=== PATIENT | female | born 1945 | race Caucasian/White ===

== ENCOUNTER 2024-11-24 10:29 | Emergency (ER) | payer MEDICARE, SELFPAY ==
--- NOTE | ~2024-11-24 | CT_ITS ---
EXAMINATION: CT abdomen pelvis w con DATE: 11/24/2024 13:19 INDICATION: Abdomen pain and constipation TECHNIQUE: Computed tomography (CT) of the abdomen and pelvis was performed without intravenous contr ast. The dose-length product was 767.26 mGy-cm. Automated exposure control and iterative reconstructi on technique were employed. COMPARISON: CT dated 11/17/2007. FINDINGS: There is dependent atelectasis of the lung bases. Heart size is normal. No significant pleu ral or pericardial effusion. Fatty infiltration of the liver. Small subcentimeter hypodensity left he patic lobe, most likely benign. The spleen, pancreas, adrenal glands and left kidney are unremarkable . There is a 3 mm nonobstructing right renal stone. Status post cholecystectomy. Nonobstructive bowel gas pattern colonic diverticulosis without evidence for diverticulitis. No free air or free fluid. N o significant vascular abnormality. No lymphadenopathy. Small fat-containing umbilical hernia. Mild l ower thoracic and lumbar spondylosis. IMPRESSION: 1. No acute abdominal abnormality. 2: Nonobstructing 3 mm right renal stone. Reviewed, dictated and finalized at location B.
[2024-11-24 10:41] VITALS: BP 189/88; PULSE 73; RESP 18; TEMP 37.1; O2SAT 96
--- NOTE | 2024-11-24 11:37 | ED.ABDPAIN ---
HPI - Abdominal Pain General Chief Complaint: Abdominal Pain Stated Complaint: CONSTIPATION Time Seen by Provider: 11/24/24 10:41 Source: patient Mode of arrival: ambulatory Limitations: no limitations History of Present Illness HPI narrative: Patient is a 79-year-old female who presents the ED with report of constipation. Patient reports her last bowel movement was around 3 days ago. She attempted to have a bowel movement today, but states she sat on the toilet for approximately 2 hours and was unable to pass any stool. She attempted taking Dulcolax and a fleets enema today w/o improvement. Has now been passing continuous liquid stool. She has had a very small amount of bright red blood with wiping. Does have history of hemorrhoids which she states are flared currently. Denies significant abdominal pain. Denies urinary complaints, N/V. Related Data Allergies Allergy/AdvReac Type Severity Reaction Status Date / Time No Known Allergies Allergy Mild Verified 10/31/07 23:46 Review of Systems Review of Systems: All systems reviewed & are unremarkable except as noted in HPI. All systems reviewed & are unremarkable except as noted in HPI and below Exam Narrative: GENERAL: Elderly but well appearing, obese with BMI of 32.6, non-toxic, in no acute distress. HEAD: Normocephalic, atraumatic. RESPIRATORY: Airway patent, respirations nonlabored. Clear to auscultation bilaterally, no rales, rhonchi, wheezing. CARDIOVASCULAR: Regular rate and rhythm without murmurs, rubs, or gallops. ABDOMINAL: Soft, mild diffuse tenderness throughout lower abdomen, nondistended. Normoactive BS. RECTAL: Several small external hemorrhoids noted, no signs of thrombosis. No bleeding. Small amount of brown stool oozing from rectum. MUSCULOSKELETAL: Moves all extremities. No gross deformities. SKIN: Warm, dry, normal color. NEURO: A&O X3. Speech clear. PSYCHIATRIC: Appropriate mood and affect. Normal interaction. Course Vital Signs Vital signs: Vital Signs Temperature 98.7 F 11/24/24 10:41 Pulse Rate 73 11/24/24 10:41 Respiratory Rate 18 11/24/24 10:41 Blood Pressure 189/88 H 11/24/24 10:41 Pulse Oximetry 96 11/24/24 10:41 Temperature 98.7 F 11/24/24 10:41 Pulse Rate 70 11/24/24 14:49 Respiratory Rate 18 11/24/24 14:49 Blood Pressure 146/71 H 11/24/24 14:49 Pulse Oximetry 97 11/24/24 14:49 MDM - Abdominal Pain MDM Narrative Medical decision making narrative: Patient presented to ED with several day history of constipation. Mild leaking liquid stool. Vital signs stable. Patient in no acute distress. Laboratory studies show leukocytosis 17.9. Neutrophil predominance. No bandemia. CMP is unremarkable. Stable electrolytes, stable kidney function. Normal LFTs and lipase. UA without signs of infection, showing very trace amount of blood. CT scan of abdomen/pelvis was obtained and without acute abnormalities. Does show right renal stone. No fecal impaction or evidence of obstruction. No infection. Personal review of images does show decent amount of stool burden. Discussed this with patient. She would like to proceed with enema. Will also give MiraLax. Discussed MiraLax/Dulcolax regimen at home over the next week for continued constipation management. Encourage high-fiber diet, plenty of fluids. Patient feeling better after enema. Feel she is safe for discharge home. Given strict return precautions. Did advised patient to follow-up with PCP for repeat laboratory evaluation elevated white blood cell count today. Patient in agreement with plan. Feels comfortable going home. Discharged in stable condition. Medical Records Attestation: I reviewed the patient's medical records. Lab Data Attestation: I reviewed the patient's lab results. 11/24/24 12:10 11/24/24 12:10 Labs: Lab Results 11/24/24 11/24/24 Range/Units 12:10 13:34 WBC 17.9 H (4.5-10.0) K/mm3 RBC 4.41 (4.2-5.4) M/mm3 Hgb 14.1 (12.0-15.0) g/dL Hct 41.0 (37.0-47.0) % MCV 93.0 (80-100) fl MCH 32.0 (26-34) pg MCHC 34.4 (32-36) g/dl RDW 12.8 (11.5-14.5) % Plt Count 217 (150-375) k/mm3 MPV 9.0 (7.4-10.4) fl Immature Gran % (Auto) 0.9 H (0-0.5) % Neut % (Auto) 86.0 H (45.5-73.1) % Lymph % (Auto) 5.4 L (18.3-44.2) % [place] % (Auto) 6.6 (2.6-8.5) % Eos % (Auto) 0.8 (0-4.4) % Baso % (Auto) 0.3 (0.2-1.2) % Lymph # (Auto) 0.96 (0.9-3.2) K/mm3 [place] # (Auto) 1.2 H (0.1-0.6) K/mm3 Eos # (Auto) 0.1 (0-0.3) K/mm3 Baso # (Auto) 0.1 (0.0-0.1) K/mm3 Abs Immat Gran (auto) 0.16 H (0.00-0.031) K/mm3 Absolute Neuts (auto) 15.4 H (1.3-6.7) K/mm3 Absolute Nucleated RBC 0.000 (0.0-0.012) K/mm3 Nucleated RBC % 0.0 (0.0-0.2) % Sodium 138 (137-145) mmol/L Potassium 4.1 (3.4-5.0) mmol/L Chloride 104 (98-107) mmol/L Carbon Dioxide 29 (22-30) mmol/L Anion Gap 5 (4-12) mmol/L BUN 14 (7-17) mg/dL Creatinine 0.73 (0.7-1.0) mg/dL Estim Creat Clear Calc 55 ml/min Estimated GFR > 60 (59 - ) Glucose 114 H (65-110) mg/dL Calcium 9.6 (8.4-10.2) mg/dL Total Bilirubin 0.5 (0.2-1.3) mg/dL AST 32 (14-36) U/L ALT 22 (6-35) U/L Alkaline Phosphatase 58 (38-126) U/L Total Protein 6.6 (6.3-8.2) g/dL Albumin 3.8 (3.5-5.1) g/dL Lipase 56 (23-300) U/L Urine Color Yellow (Yellow) Urine Appearance Clear (Clear) Urine pH 8.0 (5.0-9.0) Ur Specific [place] 1.023 (1.001-1.035) Urine Protein Negative (Negative) mg/dL Urine Glucose (UA) Negative (Negative) mg/dL Urine Ketones Negative (Negative) mg/dL Ur Blood (Man) Negative (Negative) Urine Nitrate Negative (Negative) Urine Bilirubin Negative (Negative) Urine Urobilinogen 1.0 (<2.0) mg/dL Add Ur Microanalysis Reviewed Leukocyte Esterase Rfl 1+ H (Negative) TETO/UL Urine RBC 6-10 H (0-2) /hpf Urine WBC 0-5 (0-3) /hpf Ur Squamous Epith Cells None seen (Few) /hpf Urine Bacteria None seen /hpf Urine Casts 0-2 Imaging Data Attestation: I personally reviewed and interpreted this imaging study as follows: Radiologist's impression: ITS Impressions Abdomen/Pelvis CT 11/24/24 14:33 IMPRESSION: 1. No acute abdominal abnormality. 2: Nonobstructing 3 mm right renal stone. Discharge Plan Discharge Clinical Impression: Constipation Qualifiers: Constipation type: unspecified constipation type Qualified Code(s): K59.00 - Constipation, unspecified Leukocytosis Qualifiers: Leukocytosis type: unspecified Qualified Code(s): D72.829 - Elevated white blood cell count, unspecified Patient Disposition: Home Condition: Stable Instructions: Antibiotic Form, Constipation (ED), High Fiber Diet (ED) Additional Instructions: Recommend MiraLax and Dulcolax twice daily as needed for the next 1 week. If you developed diarrhea, you may decrease to once per day or every other day. Recommend high-fiber diet, increasing fluid intake. Avoid straining as this can aggravate your hemorrhoids. Follow-up with your primary care doctor for further evaluation. Additionally, your white blood cell count was noted to be elevated today. There are no signs of infection on your imaging. Follow-up with your primary care doctor for repeat laboratory evaluation. Return to the ED if you experience worsening or severe symptoms, unable to keep down food or drink, severe rectal bleeding, fevers, or any other symptoms of concern. Patient Language: Bahamian Follow-up/Referrals: Kathie,MD Tamie [Primary Care Provider] - Time of Disposition: 15:37
--- NOTE | 2024-11-24 11:57 | PC.NURSE ---
two attempts made for iv access and lab draw, a second nurse will attempt to obtain iv access
--- OUTSIDE RECORDS SUMMARY | 2024-11-24 12:14 | XMS_ITS | Referral Summary ---
Author Organization [address] Address [address] [place] [phone] Care Team Providers Care Building Materials Sales Attendant Name Role Phone Tamie Vázquez MD Primary Care [facility] Encounters Date Type Department Care Team Description 11/16/2024 Telephone [facility] Medicine [address] [place] [phone] Skylar Albrecht MA Chart Review ([employer] med adh) 10/28/2024 [facility]phone [facility] [address] [place] [phone] Amberly Tavarez MA Chart Review (Med adherence) 10/21/2024 10:00 AM CDT Office Visit [facility] Medical [facility] Family Medicine [address] [place] [phone] Tamie Vázquez MD Encounter for Medicare annual wellness exam (Primary Dx); Abnormal CT of the chest; Coronary artery calcification; Hypertension, essential; Type 2 diabetes mellitus with stage 2 chronic kidney disease, without long-term current use of insulin (HCC); CKD (chronic kidney disease) stage 2, GFR 60-89 ml/min; Mixed hyperlipidemia; Acquired hypothyroidism; Mild persistent asthma without complication; LAURA (obstructive sleep apnea); Mild recurrent major depression; Atrophic vaginitis; Hepatic steatosis; Class 2 severe obesity due to excess calories with serious comorbidity and body mass index (BMI) of 35.0 to 35.9 in adult (HCC); Pulmonary nodule; Postmenopausal status; Screening mammogram for breast cancer 10/14/2024 Results Follow-Up [facility] [address] [phone] Tamie Vázquez MD Lipid panel, Comprehensive metabolic panel, Hemoglobin A1c, Additional followed-up results: 2 10/13/2024 Orders Only [facility] [address] [phone] Tamie Vázquez MD 09/16/2024 ACO Med[facility] [address] [place] [phone] 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, education finance processor from Last 3 Months Allergies No known active allergies Medications fluticasone propionate (FLONASE) 50 mcg/actuation nasal spray SHAKE LIQUID AND USE 2 SPRAYS IN EACH NOSTRIL DAILY 16 g 8 03/08/20 22 Active pen needle, diabetic (NovoFine Plus) 32 gauge x 1/6 needle Use weekly with her injections 100 each 11/30/19 23 Active cetirizine 10 mg capsule Take 10 mg by mouth daily 30 capsule 3 01/07/20 23 Active lisinopriL (PRINIVIL,ZESTRIL ) 2.5 mg tabletIndications :Hypertension, essential TAKE 1 TABLET(2.5 MG) BY MOUTH DAILY 90 tablet 03/04/20 23 Active clobetasoL (TEMOVATE) 0.05 % ointment Apply to vulva 1-2x weekly. 45 g 1 06/23/19 24 Active escitalopram (LEXAPRO) 20 mg tabletIndications :Mild depression TAKE 1 TABLET(20 MG) BY MOUTH DAILY 90 tablet 3 10/20/19 24 Active rosuvastatin (CRESTOR) 5 mg tablet Take 1 tablet (5 mg total) by mouth daily 30 tablet 11 12/01/19 24 2024 Active estradioL (Estrace) 0.01 % (0.1 mg/gram) vaginal cream Apply 1/2 to 1 FTU to external labia and vulva 2-3x weekly. 42.5 g 2 12/25/19 24 Active hydroCHLOROthiazi de 12.5 mg tabletIndications :Hypertension, essential TAKE 1 TABLET(12.5 MG) BY MOUTH DAILY 90 tablet 3 02/27/20 24 Active levothyroxine (SYNTHROID) 50 mcg tabletIndications :Acquired hypothyroidism TAKE 1 TABLET(50 MCG) BY MOUTH DAILY 90 tablet 2 06/28/19 25 Active fluticasone propion-salmetero L (ADVAIR HFA) 230-21 mcg/actuation inhaler Inhale 2 puffs 2 (two) times a day Rinse mouth with water after use. Do not swallow. 3 g 3 08/20/19 25 Active triamcinolone (KENALOG) 0.1 % cream APPLY TOPICALLY TO THE AFFECTED AREA TWICE DAILY 30 g 1 09/24/19 25 Active aspirin 81 mg enteric coated tablet Take 1 tablet (81 mg total) by mouth daily 10/22/19 25 2025 Active albuterol HFA (PROVENTIL HFA,VENTOLIN HFA,PROAIR HFA) 90 mcg/actuation inhaler INHALE 2 PUFFS BY MOUTH EVERY 6 HOURS NEEDED FOR WHEEZING OR SHORTNESS OF BREATH 1 each 3 11/10/19 25 Active potassium chloride ER 10 mEq CR tabletIndications :Hypokalemia TAKE 1 TABLET(10 MEQ) BY MOUTH DAILY 100 tablet 1 11/06/19 25 Active Ozempic 0.25 mg or 0.5 mg (2 mg/3 mL) pen injector injectionIndicati ons:Type 2 diabetes mellitus with hyperlipidemia (HCC) INJECT 0.5MG UNDER THE SKIN WEEKLY 3 mL 11/16/19 25 Active albuterol HFA (PROVENTIL HFA,VENTOLIN HFA,PROAIR HFA) 90 mcg/actuation inhaler Inhale 2 puffs every 6 (six) hours as needed for wheezing or shortness of breath 1 each 3 04/28/20 23 2024 Discontinued potassium chloride ER 10 mEq CR tabletIndications :Hypokalemia TAKE 1 TABLET(10 MEQ) BY MOUTH DAILY 30 tablet 09/28/19 25 2024 Discontinued Ozempic 0.25 mg or 0.5 mg (2 mg/3 mL) pen injector injectionIndicati ons:Type 2 diabetes mellitus with hyperlipidemia (HCC) INJECT 0.5MG UNDER THE SKIN WEEKLY 3 mL 10/14/19 25 2024 Discontinued Active Problems Problem Noted Date Diagnosed Date Low bone mass 10/14/2023 Assessment & Plan (10/14/2023 1:26 PM CDT): Chronic, stable Continue bone health support CKD (chronic kidney disease) stage 2, GFR 60-89 ml/min 10/14/2023 Mild persistent asthma 02/13/2023 Assessment & Plan (10/14/2023 12:43 PM CDT): Chronic, stable Managed by Pulmonary Continue albuterol, Advair Stress incontinence 07/15/2022 Assessment & Plan (10/14/2023 12:43 PM CDT): Chronic, stable Currently not on medication Continue to monitor Assessment & Plan (07/25/2022 10:49 AM LUMBER KILN OPERATOR): Chronic, improved Continue to monitor Assessment & Plan (07/15/2022 11:35 AM LUMBER KILN OPERATOR): -Main issue of urinary leakage with coughing, laughing. Denies other incontinence outside of this. Denies difficulty voiding. -Explained to patient that oral medication is not effective in helping stress incontinence. Discussed option of Kegel exercises on her own, pelvic floor therapy, or referral to urogyn surgeon who can assess for possible bladder sling. Patient elects to trial Kegel exercises on her own first. PLAN: -Start Kegel exercises on a daily basis. She was given handout on these exercises. We discussed importance of continuing these exercises once started. -Will f/u in 6 months. If she is doing well with exercises, she will cancel appointment. If not, will revisit pelvic floor therapy vs. Bladder sling. Pulmonary nodule 05/01/2021 Assessment & Plan (10/14/2023 12:43 PM CDT): Chronic, stable Last CT reviewed Consider follow-up testing in one year Assessment & Plan (07/25/2022 10:47 AM LUMBER KILN OPERATOR): Chronic, stable Continue to follow with pulmonary Update me with any changes Assessment & Plan (08/23/2021 11:58 AM LUMBER KILN OPERATOR): Update me with any changes Continue to follow with Pulmonary Assessment & Plan (05/15/2021 11:16 AM LUMBER KILN OPERATOR): Continue to follow with pulmonary Abnormal CT of the chest 09/20/2020 Overview (09/20/2020): will check PET scan further guidance once we have the results call for questions or concerns Assessment & Plan (10/14/2023 12:38 PM CDT): Chronic, stable Managed by Pulmonary Last CT completed in July 2023 Consider follow-up testing in one year Assessment & Plan (07/25/2022 10:36 AM LUMBER KILN OPERATOR): Chronic- stable Continue to follow with pulmonary Update me with any changes Assessment & Plan (05/15/2021 11:09 AM LUMBER KILN OPERATOR): CT reviewed Continue to follow with pulmonary Assessment & Plan (10/21/2020 7:38 PM CDT): Repeat CT scan of the chest in 6 months. Chronic cough 08/22/2020 Assessment & Plan (10/14/2023 1:24 PM CDT): Chronic, stable/improved Continue albuterol, Advair Update me with any changes or concerns Assessment & Plan (10/21/2020 7:37 PM CDT): PFTs do not show evidence of obstruction. She did not see improvement with bronchodilators. I will start her on Flonase and Zyrtec and follow her symptoms. If no improvement consider getting methacholine challenge test. Shortness of breath 08/22/2020 Assessment & Plan (10/14/2023 1:31 PM CDT): Chronic, stable Consider referral to Cardiology for further guidance-but she has declined for now. We did shared decision making- but encouraged to consider further evaluation Assessment & Plan (07/25/2022 10:48 AM LUMBER KILN OPERATOR): Chronic, stable She has follow up with pulmonary to review CT scan and symptoms We discussed an EKG, further evaluation- declined Any emergent symptoms, to the er Call for questions Assessment & Plan (05/15/2021 11:17 AM LUMBER KILN OPERATOR): Work up completed Continue to monitor Assessment & Plan (10/21/2020 7:39 PM CDT): Patient states her shortness of breath is improved. Will continue monitor her symptoms. Assessment & Plan (08/22/2020 10:43 AM LUMBER KILN OPERATOR): Will check PFT's Will start a new inhaler called symbicort-rinse her mouth out after using Continue albuterol as needed Chest xray ordered Further guidance once we have the results Hepatic steatosis 05/10/2020 Assessment & Plan (10/14/2023 12:42 PM CDT): Chronic, stable Continue to work on healthy lifestyle changes Assessment & Plan (07/25/2022 10:44 AM LUMBER KILN OPERATOR): Chronic Encouraged healthy lifestyle changes Assessment & Plan (05/15/2021 11:14 AM LUMBER KILN OPERATOR): lft's now normal Continue to monitor Assessment & Plan (05/10/2020 11:03 AM LUMBER KILN OPERATOR): With elevated liver function We reviewed a lower fat diet, working towards a lower BMI Recheck labs in 6 months Call for questions or concerns Arthritis of left knee 05/10/2020 Assessment & Plan (10/14/2023 12:39 PM CDT): Chronic, stable Continue supportive care Assessment & Plan (07/25/2022 10:37 AM LUMBER KILN OPERATOR): Chronic, stable Continue supportive care Assessment & Plan (05/15/2021 11:11 AM LUMBER KILN OPERATOR): Improved Continue supportive care Assessment & Plan (05/10/2020 11:05 AM LUMBER KILN OPERATOR): Xray reviewed Will refer to one of my colleagues for an injection Consider physical therapy-referral placed Tylenol as needed for pain Rest, ice, elevate as needed Call for questions or concerns Encounter for Medicare annual wellness exam 11/2019 Overview (10/21/2024): Work on healthy diet and activity Encouraged to look into POA or living will Health Maintenance: Last mammogram: 12/06, 01/06-WNL Last DEXA:12/06-low bone mass Last colonoscopy: 01/05-repeat in three years Last Tdap: Encouraged to get at the pharmacy Last pneumonia: up to date Last Shingrix: 2019 Last Flu: up to date Last COVID: reviewed Assessment & Plan (10/21/2024 10:22 AM CDT): Work on healthy diet and activity Encouraged to look into POA or living will Health Maintenance: Last mammogram: 12/06, 01/06-WNL Last DEXA:12/06-low bone mass Last colonoscopy: 01/05-repeat in three years Last Tdap: Encouraged to get at the pharmacy Last pneumonia: up to date Last Shingrix: 2019 Last Flu: up to date Last COVID: reviewed Assessment & Plan (10/14/2023 1:22 PM CDT): Work on healthy diet and activity Encouraged to look into POA or living will Health Maintenance: Last mammogram: 12/06-WNL Last DEXA:12/06-low bone mass Last colonoscopy: 2015, 01/05-repeat in three years Last Tdap: Encouraged to get at the pharmacy Last pneumonia: up to date Last Shingrix: 2019 Last Flu: up to date Last COVID: up to date Assessment & Plan (07/25/2022 10:33 AM LUMBER KILN OPERATOR): Work on healthy diet and activity Encouraged to look into POA or living will Health Maintenance: Last mammogram: scheduled Last DEXA: 01/05/2020-scheduled Last colonoscopy: 2015, repeat 12/2020-referral placed Last Tdap: insurance Last pneumonia: today Last Shingrix: 2018 Last Flu: recently got it Last COVID: encouraged Assessment & Plan (05/15/2021 11:08 AM LUMBER KILN OPERATOR): Work on healthy diet and activity Encouraged to look into POA or living will Health Maintenance: Last mammogram: ordered Last DEXA: 01/05/2020 Last colonoscopy: 2015, repeat 12/2020 Last Tdap: insurance Last pneumonia/Prevnar: will get this year Last Shingrix: 2019 Last Flu: recently got it Last COVID: up to date Assessment & Plan (03/21/2020 3:07 PM CDT): Work on healthy low carb diet Healthy activity for 30 minutes daily Wear sun screen, seat belts No drinking and driving Health Maintenance: Last mammogram: ordered Last DEXA: 01/05/2020 Last colonoscopy: 2015, repeat 12/2020 Last Tdap: insurance Last pneumonia/Prevnar: will get this year Last Shingrix: 2019 Last Flu: recently got it Type 2 diabetes mellitus wit h stage 2 chronic kidney disease, without long-term current use of insulin 03/21/2020 Assessment & Plan (10/14/2023 1:30 PM CDT): Chronic, stable Labs ordered Continue low carb Continue healthy habits Assessment & Plan (11/13/2022 1:22 PM CDT): Previously IFG-condition worsened Will refer to diabetes education Will place referral to an optometry Will start ozempic .25 mg weekly No history of thyroid cancer or MEN, pancreatitis Follow up in 3 months Assessment & Plan (07/25/2022 10:46 AM LUMBER KILN OPERATOR): Chronic, worse Encouraged a lower carb diet Gentle activity- like walking Can help mood, bones strength, and sugar Assessment & Plan (05/15/2021 11:15 AM LUMBER KILN OPERATOR): Continue to work on a lower carb diet Assessment & Plan (03/21/2020 3:34 PM CDT): Work on low carb diet Mixed hyperlipidemia 04/21/2019 Assessment & Plan (10/14/2023 12:43 PM CDT): Chronic, stable Continue Lipitor Assessment & Plan (11/13/2022 1:22 PM CDT): Chronic, but now diabetic Will start low dose lipitor Recheck labs in 6 weeks Call for questions or concerns Assessment & Plan (07/25/2022 10:47 AM LUMBER KILN OPERATOR): Chronic, uncontrolled CVD score 21.6% We discussed medication, she is very reluctant Reviewed healthy changes Recheck in 3 months Assessment & Plan (05/15/2021 11:16 AM LUMBER KILN OPERATOR): Doing well on pravastatin Continue current regimen Assessment & Plan (08/22/2020 12:59 PM LUMBER KILN OPERATOR): Declined medication restart Reviewed ASCVD score Consider recheck in 6 months from her original Continue to work on healthy changes Assessment & Plan (05/10/2020 11:04 AM LUMBER KILN OPERATOR): Improved! Continue current regimen Assessment & Plan (03/21/2020 3:16 PM CDT): CVD score 14.1% Will start pravastatin 10 mg nightly Lab recheck in 6 weeks Call for questions or concerns Assessment & Plan (07/22/2019 8:43 AM LUMBER KILN OPERATOR): CVD score 13.3% We reviewed cardiac risks, and what her 10 year risk is in clear language Continue work on healthy changes Call for questions or concerns Assessment & Plan (04/21/2019 9:17 AM LUMBER KILN OPERATOR): Labs reviewed Will start with lifestyle changes Fish oil 2-4 g EPA/DHA daily Low fat diet Work towards weight loss Increase aerobic exercise Recheck in 3-6 months Atrophic vaginitis 04/21/2019 Assessment & Plan (10/14/2023 12:39 PM CDT): Chronic, stable Managed by Gynecology Continue Estrace as prescribed Assessment & Plan (07/25/2022 10:40 AM LUMBER KILN OPERATOR): Chronic We discussed vaginal estrogen- she declined Will refer to MANAGER COSMETIC to discuss treatment options Assessment & Plan (05/15/2021 11:12 AM LUMBER KILN OPERATOR): We discussed doing a trial of a vaginal estrogen She has been using kenalog Assessment & Plan (04/21/2019 9:28 AM LUMBER KILN OPERATOR): On kenalog for years with improvement Will continue for now, but consider follow up for pelvic Hypertension, essential 03/18/2019 Assessment & Plan (10/14/2023 12:43 PM CDT): Chronic, stable Continue her current regimen Assessment & Plan (11/13/2022 1:23 PM CDT): Chronic, but above goal Will start lisinopril 2.5 mg daily Continue HCTZ Continue to work on healthy changes BP recheck in 2 weeks Assessment & Plan (07/25/2022 10:45 AM LUMBER KILN OPERATOR): Chronic, stable Continue healthy changes for her blood pressure Assessment & Plan (05/15/2021 11:15 AM LUMBER KILN OPERATOR): Stable Continue current regimen Continue healthy changes Assessment & Plan (03/21/2020 3:15 PM CDT): Blood pressure well controlled Continue current regimen Call for questions or concerns Assessment & Plan (07/22/2019 8:41 AM LUMBER KILN OPERATOR): Blood pressure at goal Continue current regimen Continue working on healthy changes Recheck in 6 months Assessment & Plan (03/18/2019 9:03 AM CDT): Blood pressure at goal Continue current regimen continue to work on healthy changes Call for questions or concerns LAURA (obstructive sleep apnea) 03/18/2019 Overview (03/18/2019): On CPAP, follows with Dr. Maher Assessment & Plan (10/14/2023 12:43 PM CDT): Chronic, stable Continue CPAP Assessment & Plan (07/25/2022 10:47 AM LUMBER KILN OPERATOR): Chronic, stable Continue to follow with Dr Maher Assessment & Plan (05/15/2021 11:16 AM LUMBER KILN OPERATOR): Continue CPAP Continue to follow with Dr Maher Assessment & Plan (10/21/2020 7:36 PM CDT): Continue with CPAP at night. Assessment & Plan (03/21/2020 3:22 PM CDT): On CPAP, follows with Dr. Maher Assessment & Plan (03/18/2019 9:04 AM CDT): Continue current regimen Continue to follow with ENT Call for questions or concerns Acquired hypothyroidism 03/18/2019 Assessment & Plan (10/14/2023 12:39 PM CDT): Chronic, stable Continue her current dose of levothyroxine Assessment & Plan (07/25/2022 10:37 AM LUMBER KILN OPERATOR): Chronic, stable Continue current dose of levothyroxine Assessment & Plan (08/23/2021 11:57 AM LUMBER KILN OPERATOR): Continue her current dose of levothyroxine Continue to follow with her social services director Call for questions or concerns Assessment & Plan (05/15/2021 12:06 PM LUMBER KILN OPERATOR): TSH is running too low, but T4 is also low Will place referral to endo Recheck thyroid, prolactin, thyroid us Call for questions or concerns Assessment & Plan (09/20/2020 11:00 AM CDT): Take the lower dose of her thyroid medication Recheck labs in 4 weeks Call for questions or concerns Assessment & Plan (08/22/2020 10:44 AM LUMBER KILN OPERATOR): Lab order printed Assessment & Plan (05/10/2020 11:04 AM LUMBER KILN OPERATOR): Now hyperthyroid Will have her alternate 137 with 125 Recheck labs in 4 weeks Call for questions or concerns Assessment & Plan (03/21/2020 3:29 PM CDT): Will increase dose Recheck in 4 weeks Call for questions Assessment & Plan (03/18/2019 9:05 AM CDT): Labs ordered Continue current regimen Mild recurrent major depression 03/18/2019 Assessment & Plan (10/14/2023 12:43 PM CDT): Chronic, stable Continue Lexapro Assessment & Plan (07/25/2022 10:46 AM LUMBER KILN OPERATOR): Chronic, improved Continue healthy changes for her mood Update me if they worsen or change Assessment & Plan (05/15/2021 11:15 AM LUMBER KILN OPERATOR): Mood is doing great Continue lexapro Assessment & Plan (03/18/2019 9:06 AM CDT): Doing fair on current regimen, has episodes where she does better or worse depending on her family Continue current medication Continue healthy changes to boost mood- exercise, healthy diet, using support structures that are in place, and good sleep habits Consider seeing a therapist If mood worsens or changes, please contact the office Anything emergent, to the er Call for questions or concerns Class 2 severe obesity due t o excess calories with serious comorbidity and body mass index (BMI) of 35.0 to 35.9 in adult 03/18/2019 Assessment & Plan (10/21/2024 10:27 AM CDT): Chronic, slight progression BMI Follow-up includes: education provided. Assessment & Plan (04/22/2024 10:40 AM LUMBER KILN OPERATOR): Chronic, improved BMI Follow-up includes: nutrition counseling. Assessment & Plan (10/14/2023 1:24 PM CDT): Chronic, improved BMI Follow-up includes: nutrition counseling, low carb diet. Assessment & Plan (07/25/2022 10:41 AM LUMBER KILN OPERATOR): BMI Follow-up includes: nutrition counseling. Assessment & Plan (05/14/2022 1:30 PM LUMBER KILN OPERATOR): BMI Follow-up includes: nutrition counseling. Assessment & Plan (08/23/2021 11:58 AM LUMBER KILN OPERATOR): Slightly higher than her last check BMI Follow-up includes: Continue working on healthy changes. Assessment & Plan (05/15/2021 11:13 AM LUMBER KILN OPERATOR): BMI Follow-up includes: nutrition counseling. Assessment & Plan (09/20/2020 10:20 AM CDT): BMI Follow-up includes: nutrition counseling. Assessment & Plan (03/21/2020 3:33 PM CDT): BMI Follow-up includes: nutrition counseling. Assessment & Plan (07/22/2019 8:43 AM LUMBER KILN OPERATOR): BMI Follow-up includes: nutrition counseling. Assessment & Plan (04/21/2019 9:20 AM LUMBER KILN OPERATOR): BMI Follow-up includes: nutrition counseling. BMR calculated at:1437 To lose weight, daily calorie goal to lose a pound a week would be [id number] Start tracking using an michele like [employer]angati, loseit There are many different diet options- I recommend moderation, low carb Try aim for whole foods-fruits, veggies, lean meats/protein sources Exercise is probably only 5% of the equation, but has many other benefits Aim for 30 minutes most day of the week for cardiac health Consider support groups like Weight Watchers or TOPS Follow up in 1 month for blood pressure/weight recheck Call for questions or concerns Assessment & Plan (03/18/2019 9:12 AM CDT): BMI Follow-up includes: nutrition counseling. Resolved Problems Problem Noted Date Diagnosed Date Resolved Date Grief 08/23/2021 10/14/2023 Assessment & Plan (10/14/2023 1:25 PM CDT): Acute, improved Update me if anything changes or worsens Assessment & Plan (07/25/2022 10:44 AM LUMBER KILN OPERATOR): Chronic, improved Continue healthy changes for her mood Update me with any changes Assessment & Plan (08/23/2021 11:56 AM LUMBER KILN OPERATOR): With several losses We reviewed medication, but at this time she is interested in therapy I have given her a list of local therapist Update me in the next couple weeks to let me know how she is doing If her mood worsens or changes I do want her to reach out to me Call for questions Left wrist pain 08/22/2020 05/15/2021 Assessment & Plan (08/22/2020 10:45 AM LUMBER KILN OPERATOR): Xray ordered Rest, ice, and consider a brace Further guidance once we have the results Call for questions or concerns Elevated liver function tests 04/21/2019 10/21/2024 Assessment & Plan (10/14/2023 12:40 PM CDT): Chronic, stable Likely related to hepatic steatosis Continue healthy lifestyle changes Assessment & Plan (11/13/2022 1:30 PM CDT): Chronic, stable Hepatic steatosis Continue healthy changes Assessment & Plan (07/25/2022 10:43 AM LUMBER KILN OPERATOR): Chronic, recurrent Will recheck in 3 months Assessment & Plan (05/15/2021 11:13 AM LUMBER KILN OPERATOR): Continue to monitor Continue healthy changes Assessment & Plan (05/10/2020 11:03 AM LUMBER KILN OPERATOR): With hepatic steatosis Will have her work on healthy lifestyle changes Assessment & Plan (03/21/2020 3:14 PM CDT): Slight bump Will check RUQ us Recheck labs in 6 months Assessment & Plan (07/22/2019 8:43 AM LUMBER KILN OPERATOR): Recheck printed Assessment & Plan (04/21/2019 9:18 AM LUMBER KILN OPERATOR): Will recheck in 3 months Work on healthy changes Immunizations Immunization Administration Dates Next Due Influenza, Quad, Adjuvantate d, Intramuscular 03/24/2021 Influenza, Quadrivalent, Hig h Dose, Preservative Free, Intrr 03/03/2023,03/26/2022,02/16/2020 Influenza, Trivalent, High D ose, Split, Preservative Free, Intramuscular 03/23/2024,03/18/2019,03/08/2018,03/26,03/08/2015,04/07/2014 Influenza, Trivalent, IM (MDV) 03/18/2013 Pneumococcal Conjugate PCV 13 05/15/2021 Pneumococcal Polysaccharide PPV23 07/25/2022 RSV Vaccine, Pref, Recombina nt, Subunit, Adjuvanted, PF, IM (Arexvy) 05/25/2023 Tdap 07/29/2022 ZOSTER Recombinant 01/24/2019,11/20/2018 Social History Tobacco Use Types Packs/Day Years Used Date Smoking Tobacco: Never Smokeless Tobacco: Never Tobacco Cessation:Counseling Given: Not Answered Alcohol Use Standard Drinks/Week Comments Not Currently 0 (1 standard drink = 0.6 oz pur e alcohol) AUDIT-C Answer Date Recorded Q1: How often do you have a drink containing alcohol? Never 04/22/2024 Q2: How many drinks containi ng alcohol do you have on a typical day when you are drinking? Patient does not drink Q3: How often do you have si x or more drinks on one occasion? Never 04/22/2024 PHQ-2 Answer Date Recorded PHQ-2 Total Score (If total score is 3 or more points, staff should administer the PHQ-9) 0 10/20/2024 PHQ-9 Answer Date Recorded PHQ-9 Total Score 3 10/20/2024 Comments No Sex and Gender Information Value Date Recorded Sex Assigned at Not on file Legal Sex Female 3:50 AM LUMBER KILN OPERATOR Gender Identity Female 07/16/2021 12:51 PM LUMBER KILN OPERATOR Sexual Orientation Straight 04/19/2021 7: 04 AM CDT Last Filed Vital Signs Vital Sign Reading Time Taken Comments Blood Pressure 136/70 10/21/2024 10:01 AM CDT Pulse 73 10/21/2024 10:01 AM CDT Temperature 36.1 C (96.9 F) 10/21/2024 10:01 AM CDT Respiratory Rate 12 10/21/2024 10:01 AM CDT Oxygen Saturation 97% 10/21/2024 10:01 AM CDT Inhaled Oxygen Concentration - - Weight 83 kg (183 lb) 10/21/2024 10:01 AM CDT Height 152.4 cm (5') 10/21/2024 10:01 AM CDT Body Mass Index 35.74 10/21/2024 10:01 AM CDT Plan of Treatment Not on file Procedures Procedure Name Priority Date/Time Associated Diagnosis Comments ECG 12-LEAD Routine 10/21/2024 10:59 AM CDT Coronary artery calcification ALBUMIN CREATININE RATIO, URINE Routine 10/13/2024 8:32 AM CDT CBC WITH AUTO DIFFERENTIAL Routine 10/13/2024 8:32 AM CDT HEMOGLOBIN A1C Routine 10/13/2024 8:32 AM CDT COMPREHENSIVE METABOLIC PANEL Routine 10/13/2024 8:32 AM CDT LIPID PANEL Routine 10/13/2024 8:32 AM CDT DIABETES EYE EXAM Routine 12/31/2023 SCREENING MAMMOGRAM BILATERAL W EJ Schedule Routine, Read Routine (OP Routine) 12/11/2023 11:43 AM CDT Screening mammogram, encounter for HM COLONOSCOPY Routine 01/07/2023 DEXA AXIAL SKELETON BONE DENSITY 1 OR MORE SITES Schedule Routine, Read Routine (OP Routine) 11/20/2022 9:07 AM CDT Postmenopausal status HEPATITIS C ANTIBODY Routine 03/18/2019 10:11 AM CDT from Last 3 Months or Most Recently Relevant to Health Maintenance Results * ECG 12 lead (10/21/2024 10:59 AM CDT) Tamie Vázquez MD ECG ORDERABLES Fin al Result * CBC with auto differential (10/13/2024 8:32 AM CDT) WBC 9.4 3.8 - 10.8 Thousand/u L [facility] RBC, POC 4.64 3.80 - 5.10 Million/uL [facility] Hgb 14.9 11.7 - 15.5 g/dL [facility] Hct 45.0 35.0 - 45.0 % [facility] MCV 97.0 80.0 - 100.0 fL [facility] MCH 32.1 27.0 - 33.0 pg [facility] MCHC 33.1 32.0 - 36.0 g/dL [facility] Comment: For adults, a slight decrease in the calculated MCHC value (in the range of 30 to 32 g/dL) is most likely not clinically significant; however, it should be interpreted with caution in correlation with other red cell parameters and the patient's clinical condition. Rdw 13.3 11.0 - 15.0 % [facility] Platelets 326 140 - 400 Thousand/u L [facility] MPV 9.5 7.5 - 12.5 fL [facility] Neutrophils, abs 6,571 1,500 - 7,800 cells/uL [facility] Lymphocytes, abs 1,983 850 - 3,900 cells/uL [facility] Monocyte abs 639 200 - 950 cells/uL [facility] Eosinophils, abs 141 15 - 500 cells/uL [facility] Basophils, abs 66 0 - 200 cells/uL [facility] Neutrophils 69.9 % [facility] Lymphocyte pct 21.1 % [facility] Monocytes 6.8 % [facility] Eosinophils 1.5 % [facility] Basophils 0.7 % [facility] 10/13/2024 8:32 AM CDT 10/13/2024 8:35 AM CDT Narrative [facility] - 10/14/2024 8:07 AM CDT FASTING:YES FASTING: YES Tamie Vázquez MD LAB BLOOD ORDERABLE S Final Result Performing Organization Address City/[facility] Co de Phone Number [facility] [address] [place] [address] * (ABNORMAL) Albumin Creatinine Ratio, Urine (10/13/2024 8:32 AM CDT) Creatinine, ur 463(H) 20 - 275 mg/dL [facility] Comment: Verified by repeat analysis. Microalbumin, ur 3.7 See Note: mg/dL [facility] Comment: Reference Range: Reference Range Not established Verified by repeat analysis. Microalbumin/creat ratio 8 <30 mg/g creat [facility] Comment: The ADA defines abnormalities in albumin excretion as follows: Albuminuria Category Result (mg/g creatinine) Normal to Mildly increased <30 Moderately increased 30-299 Severely increased > OR = 300 The ADA recommends that at least two of three specimens collected within a 3-6 month period be abnormal before considering a patient to be within a diagnostic category. 10/13/2024 8:32 AM CDT 10/13/2024 8:35 AM CDT Narrative [facility] - 10/14/2024 8:07 AM CDT FASTING:YES FASTING: YES us Tamie Vázquez MD LAB URINE ORDERABLE S Final Result Performing Organization Address [facility] Co de Phone Number [facility] [address] [address] * (ABNORMAL) Hemoglobin A1c (10/13/2024 8:32 AM CDT) Hgb A1C 5.7(H) <5.7 % of total Hgb [facility] Comment: For someone without known diabetes, a hemoglobin A1c value between 5.7% and 6.4% is consistent with prediabetes and should be confirmed with a follow-up test. For someone with known diabetes, a value <7% indicates that their diabetes is well controlled. A1c targets should be individualized based on duration of diabetes, age, comorbid conditions, and other considerations. This assay result is consistent with an increased risk of diabetes. Currently, no consensus exists regarding use of hemoglobin A1c for diagnosis of diabetes for children. 10/13/2024 8:32 AM CDT 10/13/2024 8:35 AM CDT Narrative [facility] - 10/14/2024 8:07 AM CDT FASTING:YES FASTING: YES us Tamie Vázquez MD LAB BLOOD ORDERABLE S Final Result [facility] [address] [place] [address] * Lipid panel (10/13/2024 8:32 AM CDT) [facility] Cholesterol 149 <200 mg/dL [facility] HDL 64 > OR = 50 mg/dL [facility] Triglycerides 138 <150 mg/dL [employer] LDL 63 mg/dL (calc) [facility] Comment: Reference range: <100 Desirable range <100 mg/dL for primary prevention; <70 mg/dL for patients with CHD or diabetic patients with > or = 2 CHD risk factors. LDL-C is now calculated using the Malcolm-Cisco calculation, which is a validated novel method providing better accuracy than the Friedewald equation in the estimation of LDL-C. Malcolm ESCOBAR et al. SASHA. 2013;310(19): 2071-1426 (http://education.PoachIt.The Whistle/faq/FID961) Chol/HDL ratio 2.3 <5.0 (calc) [employer] Non-HDL, (LDL+VLDL) 85 <130 mg/dL (calc) [facility] Comment: For patients with diabetes plus 1 major ASCVD risk factor, treating to a non-HDL-C goal of <100 mg/dL (LDL-C of <70 mg/dL) is considered a therapeutic option. 10/13/2024 8:32 AM CDT 10/13/2024 8:35 AM CDT Narrative [facility] - 10/14/2024 8:07 AM CDT FASTING:YES FASTING: YES us Tamie Vázquez MD LAB BLOOD ORDERABLE S Final Result [facility] [address] [place] [address] * Comprehensive metabolic panel (10/13/2024 8:32 AM CDT) Pathologist [facility] Glucose 95 65 - 99 mg/dL [facility] [employer] Comment: Fasting reference interval BUN 10 7 - 25 mg/dL [facility] [employer] Creatinine 0.74 0.60 - 1.00 mg/dL [facility] [employer] eGFR 83 > OR = 60 mL/min/1.7 3m2 [facility] [employer] BUN/creat ratio SEE NOTE: 6 - 22 (calc) [facility] Comment: Not Reported: BUN and Creatinine are within reference range. Sodium 142 135 - 146 mmol/L [facility] [employer] Potassium, pl 3.9 3.5 - 5.3 mmol/L [facility] Chloride 103 98 - 110 mmol/L [facility] [employer] CO2 30 20 - 32 mmol/L [facility] Calcium 9.5 8.6 - 10.4 mg/dL [facility] Protein, sr 7.0 6.1 - 8.1 g/dL [facility] Albumin 4.4 3.6 - 5.1 g/dL [facility] GLOBULIN 2.6 1.9 - 3.7 g/dL (calc) [facility] Alb/glob ratio 1.7 1.0 - 2.5 (calc) [facility] Bilirubin, total 0.5 0.2 - 1.2 mg/dL [facility] [employer] Alk phos 58 37 - 153 U/L [facility] AST 17 10 - 35 U/L [facility] ALT (SGPT) 13 6 - 29 U/L [facility] 10/13/2024 8:32 AM CDT 10/13/2024 8:35 AM CDT Narrative [facility] - 10/14/2024 8:07 AM CDT FASTING:YES FASTING: YES Tamie Vázquez MD LAB BLOOD ORDERABLE S Final Result [facility] [address] [place] [address] * DIABETES EYE EXAM (12/31/2023) SCRIBED DIABETIC DILATED EYE EXAM Normal Historical Provider HEALTH MAINTENANCE Final Result * (ABNORMAL) Screening Mammogram Bilateral W Ej (12/11/2023 11:43 AM CDT) Anatomical Region Laterality Modality Breast Bilateral Mammography Impressions 12/11/2023 12:48 PM CDT BI-RADS ATLAS category (overall): 0 - Incomplete: Needs Additional Imaging Evaluation 1. Indeterminate right breast masses as above. Further evaluation with diagnostic right mammography and possible diagnostic right breast ultrasound is recommended. 2. No mammographic evidence of malignancy in the left breast. Routine screening mammography of the left breast is recommended in 1 year. The patient has been or will be contacted. Narrative 12/11/2023 12:48 PM CDT Screening Mammogram Bilateral W Ej: 12/11/23 The study was acquired using full field digital technology and interpreted from soft copy. 2D digital mammographic views, as well as 3D digital tomosynthesis were performed in the CC and MLO projections. CLINICAL: Screening mammogram, encounter for. No relevant medical history has been documented for this patient. No known family history of breast cancer. COMPARISONS: 11/28/2022 Screening Mammogram Bilateral W Ej 07/10/2020 Screening Mammogram Bilateral W Ej 11/05/2018 Breast Imaging Screening Outside Reference BREAST TISSUE: The breasts have scattered areas of fibroglandular density. FINDINGS: There are unchanged benign calcifications in both breasts. There is an unchanged benign mass in the posterolateral left breast. There are two adjacent small circumscribed masses in the posterior right breast on the MLO view only. These may represent intramammary lymph nodes but were not seen on prior mammograms. There is no new suspicious finding in the left breast on mammogram. us Self Screening Mammogram IMG MAMMO PROCEDURES Fi nal Result * HM COLONOSCOPY (01/07/2023) Historical Provider HEALTH MAINTENANCE Final Result * Dexa Axial Skeleton Bone Density 1 or 2 Site (11/20/2022 9:07 AM CDT) Anatomical Region Laterality Modality Body N/A Mammography 11/20/2022 5:29 PM CDT Narrative 11/20/2022 5:30 PM CDT EXAM DESCRIPTION: DEXA AXIAL SKELETON BONE DENSITY 1 OR MORE SITES REASON FOR STUDY: 77 y/o year old F with given history of screening. 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 Dissimilar scan types or analysis methods precludes assessment for calculating a significant change. LEFT HIP: Total BMD is 0.965 g/cm2 T-score is 0.2 This is a 3.4% increase in comparison to prior exam which is statistically significant. Femoral neck BMD is 0.691 g/cm2 T-score is -1.4 FRAX: 10 year risk for a major osteoporotic fracture is 15 %, 10 year risk for a hip fracture is 2.5 % IMPRESSION: Low bone mass REFERENCE: Bone mineral density: Normal (T-score above or = -1.0) Low bone mass (T-score between -1.0 and -2.5) replaces the previously used term osteopenia Osteoporosis (T-score = or below -2.5) Medical evaluation for secondary causes of low bone mineral density may be appropriate. FRAX is a World Health Organization validated fracture risk assessment tool that calculates a person's 10 year probability of a major osteoporosis related fracture and hip fracture. According to the National Osteoporosis Foundation guidelines, postmenopausal women and men age 50 or older with low bone mass and a 10 year probability of a major osteoporosis related fracture = or greater than 20% or a 10 year probability of a hip fracture = or greater than 3% should be considered for treatment. For further information, including treatment recommendations, please refer to the 2019 ISCD Official Positions (http://www.iscd.org) and the NOF's Clinician's Guide to Prevention and Treatment of Osteoporosis (http://www.nof.org/professionals/clinical-guidelines) THIS IS AN ELECTRONICALLY VERIFIED FINAL REPORT 11/20/2022 5:30 PM - Electronically signed by Lucero Gilbert M.D. TW: TW Report ID: [id number] Reading Location: [id number] Procedure Note Lucero Gilbert MD - 11/20/2022 EXAM DESCRIPTION: DEXA AXIAL SKELETON BONE DENSITY 1 OR MORE SITES REASON FOR STUDY: 77 y/o year old F with given history of screening. Chain Maker Machine/Model: Kyron A (S/N [id number]) CLINICAL INFORMATION: Current height: 60 inches Maximum height: 61.5 inches Weight: 200 pounds Risk factors: Prior fracture COMPARISON: 01/05/2020 FINDINGS: AP LUMBAR SPINE L1-L4: Total BMD is 0.886 g/cm2 T-score is -1.5 This is 2.3% increase in comparison to prior exam. Dissimilar scan typesor analysis methods precludes assessment for calculating a significantchange. LEFT HIP: Total BMD is 0.965 g/cm2 T-score is 0.2 This is a 3.4% increase in comparison to prior exam which is statistically significant. Femoral neck BMD is 0.691 g/cm2 T-score is -1.4 FRAX: 10 year risk for a major osteoporotic fracture is 15 %, 10 year risk for ahip fracture is 2.5 % IMPRESSION: Low bone mass REFERENCE: Bone mineral density: Normal (T-score above or = -1.0) Low bone mass (T-score between -1.0 and -2.5) replaces thepreviously used term osteopenia Osteoporosis (T-score = or below -2.5) Medical evaluation for secondary causes of low bone mineral density may be appropriate. FRAX is a World Health Organization validated fracture risk assessmenttool that calculates a person's 10 year probability of a major osteoporosisrelated fracture and hip fracture. According to the National OsteoporosisFoundation guidelines, postmenopausal women and men age 50 or older with low bonemass and a 10 year probability of a major osteoporosis related fracture = or greater than 20% or a 10 year probability of a hip fracture = or greaterthan 3% should be considered for treatment. For further information, including treatment recommendations, please referto the 2019 ISCD Official Positions (http://www.iscd.org) and the NOF's Clinician's Guide to Prevention and Treatment of Osteoporosis (http://www.nof.org/professionals/clinical-guidelines) THIS IS AN ELECTRONICALLY VERIFIED FINAL REPORT 11/20/2022 5:30 PM - Electronically signed by Lucero Gilbert M.D. TW: TW Report ID: [id number] Reading Location: [place] [address] Tamie Vázquez MD IMG DXA PROCEDURES Final Result * Hepatitis C antibody (03/18/2019 10:11 AM CDT) Hep C Ab NON-REACT GABE NON-REACT GABE [facility] SIGNAL TO CUT-OFF 0.03 <1.00 [facility] [place] Comment: HCV antibody was non-reactive. There is no laboratory evidence of HCV infection. In most cases, no further action is required. However, if recent HCV exposure is suspected, a test for HCV RNA (test code 99432) is suggested. For additional information please refer to http://education.Betterific/faq/MZG75c2 (This link is being provided for informational/ educational purposes only.) 03/18/2019 10:1 1 AM CDT 03/18/2019 10:13 AM CDT Narrative [facility] - 03/19/2019 1:55 PM CDT FASTING:YES FASTING: YES Resulting Agency Comment Performing Organization Information: Site ID: [id number] Name: [facility] Address: [address] [phone] Director: Stepan Hercules D.O., MPH Tamie Vázquez MD LAB MICROBIOLOGY - GENERAL ORDERABLES Final Result [facility] [place] [facility] from Last 3 Months or Most Recently Relevant to Health Maintenance Insurance A[employer]NA MEDICARE AETNA MEDICARE AETNA MEDICARE 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
--- OUTSIDE RECORDS SUMMARY | 2024-11-24 12:14 | XMS_ITS | Clinical Summary ---
Author Organization [address] Address [address] [place] [phone] Care Team Providers Care Utility Tender Carding Name Role Phone Tamie Vázquez MD Primary Care Provi nimisha Allergies No known active allergies Medications fluticasone [...] monitor Assessment & Plan (07/25/2022 10:49 AM DIRECTOR TELEVISION NEWS): Chronic, improved Continue to monitor Assessment & Plan (07/15/2022 11:35 AM DIRECTOR TELEVISION NEWS): -Main issue of urinary leakage with coughing, [...] year Assessment & Plan (07/25/2022 10:47 AM DIRECTOR TELEVISION NEWS): Chronic, stable Continue to follow with pulmonary Update me with any changes Assessment & Plan (08/23/2021 11:58 AM DIRECTOR TELEVISION NEWS): Update me with any changes Continue to follow with Pulmonary Assessment & Plan (05/15/2021 11:16 AM DIRECTOR TELEVISION NEWS): Continue to follow with pulmonary Abnormal CT of the chest 09/20/2020 Overview (09/20/2020): will check PET scan further guidance once we have the results call for questions or concerns Assessment & Plan (10/14/2023 12:38 PM CDT): Chronic, stable Managed by Pulmonary Last CT completed in July 2023 Consider follow-up testing in one year Assessment & Plan (07/25/2022 10:36 AM DIRECTOR TELEVISION NEWS): Chronic- stable Continue to follow with pulmonary Update me with any changes Assessment & Plan (05/15/2021 11:09 AM DIRECTOR TELEVISION NEWS): CT reviewed Continue to follow with pulmonary [...] Assessment & Plan (10/14/2023 1:31 PM CDT): narinder Horne Consider referral to Cardiology for further guidance-but she has declined for now. We did shared decision making- but encouraged to consider further evaluation Assessment & Plan (07/25/2022 10:48 AM DIRECTOR TELEVISION NEWS): Chronicnarindre She has follow up with pulmonary to review CT scan and symptoms We discussed an EKG, further evaluation- declined Any emergent symptoms, to the er Call for questions Assessment & Plan (05/15/2021 11:17 AM DIRECTOR TELEVISION NEWS): Work up completed Continue to monitor Assessment & Plan (10/21/2020 7:39 PM CDT): Patient states her shortness of breath is improved. Will continue monitor her symptoms. Assessment & Plan (08/22/2020 10:43 AM DIRECTOR TELEVISION NEWS): Will check PFT's Will start a new inhaler called symbicort-rinse her mouth out after using Continue albuterol as needed Chest xray ordered Further guidance once we have the results Hepatic steatosis 05/10/2020 Assessment & Plan (10/14/2023 12:42 PM CDT): narinder Horne Continue to work on healthy lifestyle changes Assessment & Plan (07/25/2022 10:44 AM DIRECTOR TELEVISION NEWS): Chronic Encouraged healthy lifestyle changes Assessment & Plan (05/15/2021 11:14 AM DIRECTOR TELEVISION NEWS): lft's now normal Continue to monitor Assessment & Plan (05/10/2020 11:03 AM DIRECTOR TELEVISION NEWS): With elevated liver function We reviewed a lower fat diet, working towards a lower BMI Recheck labs in 6 months Call for questions or concerns Arthritis of left knee 05/10/2020 Assessment & Plan (10/14/2023 12:39 PM CDT): Chronicnarinder Continue supportive care Assessment & Plan (07/25/2022 10:37 AM DIRECTOR TELEVISION NEWS): Chronic, stable Continue supportive care Assessment & Plan (05/15/2021 11:11 AM DIRECTOR TELEVISION NEWS): Improved Continue supportive care Assessment & Plan (05/10/2020 11:05 AM DIRECTOR TELEVISION NEWS): Xray reviewed Will refer to one of [...] 12/06-WNL Last DEXA:12/06-low bone mass Last colonoscopy: 01/05-repeat in three years Last Tdap: Encouraged to get at the pharmacy Last pneumonia: up to date Last Shingrix: 2019 Last Flu: up to date Last COVID: up to date Assessment & Plan (07/25/2022 10:33 AM DIRECTOR TELEVISION NEWS): Work on healthy diet and activity Encouraged to look into POA or living will Health Maintenance: Last mammogram: scheduled Last DEXA: 01/05/2020-scheduled Last colonoscopy: 2015, repeat 12/2020-referral placed Last Tdap: insurance Last pneumonia: today Last Shingrix: 2019 Last Flu: recently got it Last COVID: encouraged Assessment & Plan (05/15/2021 11:08 AM DIRECTOR TELEVISION NEWS): Work on healthy diet and activity Encouraged [...] pneumonia/Prevnar: will get this year Last Shingrix: 2018 Last Flu: recently got it Type 2 [...] months Assessment & Plan (07/25/2022 10:46 AM DIRECTOR TELEVISION NEWS): Chronic, worse Encouraged a lower carb diet Gentle activity- like walking Can help mood, bones strength, and sugar Assessment & Plan (05/15/2021 11:15 AM DIRECTOR TELEVISION NEWS): Continue to work on a lower carb [...] concerns Assessment & Plan (07/25/2022 10:47 AM DIRECTOR TELEVISION NEWS): Chronic, uncontrolled CVD score 21.6% We discussed medication, she is very reluctant Reviewed healthy changes Recheck in 3 months Assessment & Plan (05/15/2021 11:16 AM DIRECTOR TELEVISION NEWS): Doing well on pravastatin Continue current regimen Assessment & Plan (08/22/2020 12:59 PM DIRECTOR TELEVISION NEWS): Declined medication restart Reviewed ASCVD score Consider recheck in 6 months from her original Continue to work on healthy changes Assessment & Plan (05/10/2020 11:04 AM DIRECTOR TELEVISION NEWS): Improved! Continue current regimen Assessment & Plan (03/21/2020 3:16 PM CDT): CVD score 14.1% Will start pravastatin 10 mg nightly Lab recheck in 6 weeks Call for questions or concerns Assessment & Plan (07/22/2019 8:43 AM DIRECTOR TELEVISION NEWS): CVD score 13.3% We reviewed cardiac risks, and what her 10 year risk is in clear language Continue work on healthy changes Call for questions or concerns Assessment & Plan (04/21/2019 9:17 AM DIRECTOR TELEVISION NEWS): Labs reviewed Will start with lifestyle changes Fish oil 2-4 g EPA/DHA daily Low fat diet Work towards weight loss Increase aerobic exercise Recheck in 3-6 months Atrophic vaginitis 04/21/2019 Assessment & Plan (10/14/2023 12:39 PM CDT): Chronic, stable Managed by Gynecology Continue Estrace as prescribed Assessment & Plan (07/25/2022 10:40 AM DIRECTOR TELEVISION NEWS): Chronic We discussed vaginal estrogen- she declined Will refer to [facility] to discuss treatment options Assessment & Plan (05/15/2021 11:12 AM DIRECTOR TELEVISION NEWS): We discussed doing a trial of a vaginal estrogen She has been using kenalog Assessment & Plan (04/21/2019 9:28 AM DIRECTOR TELEVISION NEWS): On kenalog for years with improvement Will [...] weeks Assessment & Plan (07/25/2022 10:45 AM DIRECTOR TELEVISION NEWS): Chronic, stable Continue healthy changes for her blood pressure Assessment & Plan (05/15/2021 11:15 AM DIRECTOR TELEVISION NEWS): Stable Continue current regimen Continue healthy changes Assessment & Plan (03/21/2020 3:15 PM CDT): Blood pressure well controlled Continue current regimen Call for questions or concerns Assessment & Plan (07/22/2019 8:41 AM DIRECTOR TELEVISION NEWS): Blood pressure at goal Continue current regimen [...] CPAP Assessment & Plan (07/25/2022 10:47 AM DIRECTOR TELEVISION NEWS): Chronic, stable Continue to follow with Dr Maher Assessment & Plan (05/15/2021 11:16 AM DIRECTOR TELEVISION NEWS): Continue CPAP Continue to follow with Dr [...] levothyroxine Assessment & Plan (07/25/2022 10:37 AM DIRECTOR TELEVISION NEWS): Chronic, stable Continue current dose of levothyroxine Assessment & Plan (08/23/2021 11:57 AM DIRECTOR TELEVISION NEWS): Continue her current dose of levothyroxine Continue to follow with her berry picker Call for questions or concerns Assessment & Plan (05/15/2021 12:06 PM DIRECTOR TELEVISION NEWS): TSH is running too low, but T4 is also low Will place referral to endo Recheck thyroid, prolactin, thyroid us Call for questions or concerns Assessment & Plan (09/20/2020 11:00 AM CDT): Take the lower dose of her thyroid medication Recheck labs in 4 weeks Call for questions or concerns Assessment & Plan (08/22/2020 10:44 AM DIRECTOR TELEVISION NEWS): Lab order printed Assessment & Plan (05/10/2020 11:04 AM DIRECTOR TELEVISION NEWS): Now hyperthyroid Will have her alternate 137 [...] Lexapro Assessment & Plan (07/25/2022 10:46 AM DIRECTOR TELEVISION NEWS): Chronic, improved Continue healthy changes for her mood Update me if they worsen or change Assessment & Plan (05/15/2021 11:15 AM DIRECTOR TELEVISION NEWS): Mood is doing great Continue lexapro Assessment [...] provided. Assessment & Plan (04/22/2024 10:40 AM DIRECTOR TELEVISION NEWS): Chronic, improved BMI Follow-up includes: nutrition counseling. Assessment & Plan (10/14/2023 1:24 PM CDT): Chronic, improved BMI Follow-up includes: nutrition counseling, low carb diet. Assessment & Plan (07/25/2022 10:41 AM DIRECTOR TELEVISION NEWS): BMI Follow-up includes: nutrition counseling. Assessment & Plan (05/14/2022 1:30 PM DIRECTOR TELEVISION NEWS): BMI Follow-up includes: nutrition counseling. Assessment & Plan (08/23/2021 11:58 AM DIRECTOR TELEVISION NEWS): Slightly higher than her last check BMI Follow-up includes: Continue working on healthy changes. Assessment & Plan (05/15/2021 11:13 AM DIRECTOR TELEVISION NEWS): BMI Follow-up includes: nutrition counseling. Assessment & Plan (09/20/2020 10:20 AM CDT): BMI Follow-up includes: nutrition counseling. Assessment & Plan (03/21/2020 3:33 PM CDT): BMI Follow-up includes: nutrition counseling. Assessment & Plan (07/22/2019 8:43 AM DIRECTOR TELEVISION NEWS): BMI Follow-up includes: nutrition counseling. Assessment & Plan (04/21/2019 9:20 AM DIRECTOR TELEVISION NEWS): BMI Follow-up includes: nutrition counseling. BMR calculated at:1437 To lose weight, daily calorie goal to lose a pound a week would be 5824-9300 Start tracking using an michele like [employer]ler, loseit There are many different diet options- [...] worsens Assessment & Plan (07/25/2022 10:44 AM DIRECTOR TELEVISION NEWS): Chronic, improved Continue healthy changes for her mood Update me with any changes Assessment & Plan (08/23/2021 11:56 AM DIRECTOR TELEVISION NEWS): With several losses We reviewed medication, but [...] 05/15/2021 Assessment & Plan (08/22/2020 10:45 AM DIRECTOR TELEVISION NEWS): Xray ordered Rest, ice, and consider a [...] changes Assessment & Plan (07/25/2022 10:43 AM DIRECTOR TELEVISION NEWS): Chronic, recurrent Will recheck in 3 months Assessment & Plan (05/15/2021 11:13 AM DIRECTOR TELEVISION NEWS): Continue to monitor Continue healthy changes Assessment & Plan (05/10/2020 11:03 AM DIRECTOR TELEVISION NEWS): With hepatic steatosis Will have her work on healthy lifestyle changes Assessment & Plan (03/21/2020 3:14 PM CDT): Slight bump Will check RUQ us Recheck labs in 6 months Assessment & Plan (07/22/2019 8:43 AM DIRECTOR TELEVISION NEWS): Recheck printed Assessment & Plan (04/21/2019 9:18 AM DIRECTOR TELEVISION NEWS): Will recheck in 3 months Work on healthy changes Encounters Date Type Department Care Team Description 11/16/2024 Telephone [facility] Medicine [address] [place] [phone] Skylar Albrecht MA Chart Review ([employer] med adh) 10/28/2024 Telephone [facility] Organization [address] [place] [phone] Amberly Tavarez MA Chart Review (Med adherence) 10/21/2024 10:00 AM CDT Office Visit [address] [phone] Tamie Vázquez MD Encounter for Medicare annual [...] mammogram for breast cancer 10/14/2024 Results Follow-Up [address] [phone] Tamie Vázquez MD Lipid panel, Comprehensive metabolic panel, Hemoglobin A1c, Additional followed-up results: 2 10/13/2024 Orders Only [address] [phone] Tamie Vázquez MD 09/16/2024 [facility] Medication Access [place] [phone] 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, 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 Last 3 Months Immunizations Immunization Administration Dates Next Due Influenza, Quad, Adjuvantate d, Intramuscular 03/24/2021 Influenza, Quadrivalent, Hig h Dose, Preservative Free, Intrr 03/03/2023,03/26/2022,02/16/2020 Influenza, Trivalent, High D ose, Split, Preservative Free, Intramuscular 03/23/2024,03/18/2019,03/08/2018,03/26,03/08/2015,04/07/2014 Influenza, Trivalent, IM (MDV) 03/18/2013 Pneumococcal Conjugate PCV 13 05/15/2021 Pneumococcal Polysaccharide PPV23 07/25/2022 RSV Vaccine, Pref, Recombina nt, Subunit, Adjuvanted, PF, IM (Arexvy) 05/25/2023 Tdap 07/29/2022 ZOSTER Recombinant 01/24/2019,11/20/2018 Surgical History Surgery Date Site/Laterality Comments GALLBLADDER SURGERY BREAST BIOPSY CHOLECYSTECTOMY Over 10 years Medical History Medical History Date Comments Hypertension, essential 03/18/2019 LAURA (obstructive sleep apnea) 03/18/2019 On CPAP, follows with Dr. Maher Acquired hypothyroidism 03/18/2019 Mild depression 03/18/2019 Shortness of breath Chest pain Arthritis 10 years Asthma Three months Varicella Grief 08/23/2021 Family History Medical History Relation Name Comments Heart failure Brother Cancer Mother Maritza Sawant Liver cancer Mother Maritza Sawant Brain cancer Sister 1 Brain cancer Sister 2 Relation Name Status Comments Brother Father Mother Maritza Sawant Sister 1 Sister 2 Social History Tobacco Use Types Packs/Day Years [...] on file Legal Sex Female 3:50 AM DIRECTOR TELEVISION NEWS Gender Identity Female 07/16/2021 12:51 PM DIRECTOR TELEVISION NEWS Sexual Orientation Straight 04/19/2021 7: 04 AM CDT Obstetrics History Para Term AB IAB SAB Ectopic Multiple Livin g Live Births 3 3 3 Date Outcome GA Total Labor Labor/2nd/3rd Weight Sex Type Anes PTL Renetta A1 A5 Name Clin Term Term Term Last Filed Vital Signs Vital Sign Reading [...] 10/21/2024 10:01 AM CDT Plan of Treatment Health Maintenance Due Date Last Done Comments Hepatitis B Screening 1963 Covid-19 Vaccine (2023-07 5 season) 2024 03/03/2023, 03/24/2021, 09/05/2020, Additional history exists Osteoporosis Screening-Bone Density Scan 11/20/2024 11/20/2022, 01/05/2020 Dilated Eye Exam 12/30/2024 12/31/2023, 12/10/2022 Hemoglobin A1C 04/14/2025 10/13/2024, 03/17, 10/29/2023, Additional history exists Foot Exam 04/22/2025 04/22/2024, 09/16, 11/13/2022, Additional history exists Albumin Creatinine Ratio, Urine 10/13/2025 10/13/2024, 04/05/2024, 10/29/2023, Additional history exists Lipid Panel 10/13/2025 10/13/2024, 03/17, 10/29/2023, Additional history exists eGFR 10/13/2025 10/13/2024, 03/17, 10/29/2023, Additional history exists Depression Screening 10/21/2025 10/21/2024, 10/21/2024, 04/22/2024, Additional history exists Fall Risk Assessment 10/21/2025 10/21/2024, 10/14/2023, 07/25/2022, Additional history exists Well Visit 65+ 10/21/2025 10/21/2024, 09/16, 10/14/2023, Additional history exists DTaP/Tdap/Td Vaccine (2 - Td or Tdap) 07/29/2032 07/29/2022 Zoster Vaccine Completed 01/24/2019, 11/20/2018 Hepatitis C Screening Completed 03/18/2019 Pneumococcal vaccine 65+ Completed 07/25/2022, 04/18 Colon Cancer Screening-CT Colonography Discontinued 01/07/2023, 01/11/2016 Colon Cancer Screening-Colonoscopy Discontinued 01/07/2023, 01/11/2016 Colon Cancer Screening-DNA Stool Discontinued 01/08/20 23, 01/11/2016 Colon Cancer Screening-FIT Discontinued 01/07/2023, Colon Cancer Screening-FOBT Discontinued 01/07/2023, 0 01/11/2016 Colon Cancer Screening-Sigmoidoscopy Discontinued 01/07/2023, 01/11/2016 Colorectal Cancer Screening Discontinued Breast Cancer Screening-Mammogram Discontinued 12/11/2023, 11/28/2022, 07/10/2020, Additional history exists Influenza Vaccine Completed 03/23/2024, , 03/26/2022, Additional history exists Procedures Procedure Name Priority Date/Time Associated Diagnosis [...] 11:43 AM CDT Screening mammogram, encounter for COLONOSCOPY Routine 01/07/2023 DEXA AXIAL SKELETON BONE DENSITY 1 OR MORE SITES Schedule Routine, Read Routine (OP Routine) 11/20/2022 9:07 AM CDT Postmenopausal status HEPATITIS C ANTIBODY Routine 03/18/2019 10:11 AM CDT from Last 3 Months or Most Recently Relevant to Health Maintenance Results * ECG 12 lead (10/21/2024 10:59 AM CDT) us Tamie Vázquez MD ECG ORDERABLES Fin al Result * CBC with auto differential (10/13/2024 8:32 AM CDT) WBC 9.4 3.8 - 10.8 Thousand/u L [facility] RBC, POC 4.64 3.80 - 5.10 Million/uL [facility] Hgb 14.9 11.7 - 15.5 g/dL [facility] Hct 45.0 35.0 - 45.0 % [facility] MCV 97.0 80.0 - 100.0 fL [facility] MCH 32.1 27.0 - 33.0 pg [facility] MCHC 33.1 32.0 - 36.0 g/dL [facility] Comment: For adults, a slight decrease in the calculated MCHC value (in the range of 30 to 32 g/dL) is most likely not clinically significant; however, it should be interpreted with caution in correlation with other red cell parameters and the patient's clinical condition. Rdw 13.3 11.0 - 15.0 % [facility] Platelets 326 140 - 400 Thousand/u L [facility] MPV 9.5 7.5 - 12.5 fL [facility] Neutrophils, abs 6,571 1,500 - 7,800 cells/uL [facility] Lymphocytes, abs 1,983 850 - 3,900 cells/uL [facility] Monocyte abs 639 200 - 950 cells/uL [facility] Eosinophils, abs 141 15 - 500 cells/uL [facility] Basophils, abs 66 0 - 200 cells/uL [facility] Neutrophils 69.9 % [facility] Lymphocyte pct 21.1 % [facility] Monocytes 6.8 % [facility] Eosinophils 1.5 % [facility] Basophils 0.7 % [facility] 10/13/2024 8:32 AM CDT 10/13/2024 8:35 AM CDT Narrative [facility] - 10/14/2024 8:07 AM CDT FASTING:YES FASTING: YES us Tamie Vázquez MD LAB BLOOD ORDERABLE S Final Result [facility] [address] [place] [phone] * (ABNORMAL) Albumin Creatinine Ratio, Urine (10/13/2024 [...] ORDERABLE S Final Result Performing Organization Address City/[facility] Co de Phone Number [facility] [address] [place] [address] * (ABNORMAL) Hemoglobin A1c (10/13/2024 8:32 AM CDT) Hgb A1C 5.7(H) <5.7 % of total Hgb [facility] Comment: For someone without known diabetes, a [...] MD LAB BLOOD ORDERABLE S Final Result [facility] [address] [address] [place] [address] * Lipid panel (10/13/2024 8:32 AM CDT) Cholesterol 149 <200 mg/dL [facility] HDL 64 > OR = 50 mg/dL [facility] Triglycerides 138 <150 mg/dL [facility] LDL 63 mg/dL (calc) [facility] Comment: Reference range: <100 Desirable range <100 mg/dL for primary prevention; <70 mg/dL for patients with CHD or diabetic patients with > or = 2 CHD risk factors. LDL-C is now calculated using the Elijah calculation, which is a validated novel method providing better accuracy than the Friedewald equation in the estimation of LDL-C. Malcolm SS et al. SASHA. 2013;310(19): 7343-1476 (http://education.sailsquare/faq/WHB266) Chol/HDL ratio 2.3 <5.0 (calc) [facility] Non-HDL, (LDL+VLDL) 85 <130 mg/dL (calc) [facility] Comment: For patients with diabetes plus 1 major ASCVD risk factor, treating to a non-HDL-C goal of <100 mg/dL (LDL-C of <70 mg/dL) is considered a therapeutic option. 10/13/2024 8:32 AM CDT 10/13/2024 8:35 AM CDT Narrative [facility] - 10/14/2024 8:07 AM CDT FASTING:YES FASTING: YES us Tamie Vázquez MD LAB BLOOD ORDERABLE S Final Result [facility] [address] [place] [address] * Comprehensive metabolic panel (10/13/2024 8:32 AM CDT) Pathologist [facility] Glucose 95 65 - 99 mg/dL [facility] Comment: Fasting reference interval BUN 10 7 - 25 mg/dL [facility] Creatinine 0.74 0.60 - 1.00 mg/dL [facility] eGFR 83 > OR = 60 mL/min/1.7 3m2 [facility] BUN/creat ratio SEE NOTE: 6 - 22 (calc) [facility] Comment: Not Reported: BUN and Creatinine are within reference range. Sodium 142 135 - 146 mmol/L [facility] Potassium, pl 3.9 3.5 - 5.3 mmol/L [facility] Chloride 103 98 - 110 mmol/L [facility] CO2 30 20 - 32 mmol/L [facility] Calcium 9.5 8.6 - 10.4 mg/dL [facility] Protein, sr 7.0 6.1 - 8.1 g/dL [facility] Albumin 4.4 3.6 - 5.1 g/dL [facility] GLOBULIN 2.6 1.9 - 3.7 g/dL (calc) [facility] Alb/glob ratio 1.7 1.0 - 2.5 (calc) [facility] Bilirubin, total 0.5 0.2 - 1.2 mg/dL [facility] Alk phos 58 37 - 153 U/L [facility] AST 17 10 - 35 U/L [facility] ALT (SGPT) 13 6 - 29 U/L [facility] 10/13/2024 8:32 AM CDT 10/13/2024 8:35 AM CDT Narrative [facility] - 10/14/2024 8:07 AM CDT FASTING:YES FASTING: YES Tamie Vázquez MD LAB BLOOD ORDERABLE S Final Result [facility] [address] [place] [address] * DIABETES EYE EXAM (12/31/2023) SCRIBED DIABETIC [...] old F with given history of screening. 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 TW: TW Report ID: [id number] Reading Location: [id number] Procedure Note Lucero Gilbert MD - 06/07/2023 EXAM DESCRIPTION: DEXA AXIAL SKELETON BONE DENSITY 1 OR MORE SITES REASON FOR STUDY: 77 y/o year old F with given history of screening. 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 TW: VITO Report ID: [id number] Reading Location: [id number] us Tamie Vázquez MD IMG DXA PROCEDURES Final Result * Hepatitis C antibody (03/18/2019 10:11 AM CDT) Hep C Ab NON-REACT GABE NON-REACT GABE [facility] [place] SIGNAL TO CUT-OFF 0.03 <1.00 [facility] [place] Comment: HCV antibody was non-reactive. There is no laboratory evidence of HCV infection. In most cases, no further action is required. However, if recent HCV exposure is suspected, a test for HCV RNA (test code 48491) is suggested. For additional information please refer to http://education.3DSoC/faq/RSF95j0 (This link is being provided for informational/ educational purposes only.) 03/18/2019 10:1 1 AM CDT 03/18/2019 10:13 AM CDT Narrative [facility] - 03/19/2019 1:55 PM CDT FASTING:YES FASTING: YES Resulting Agency Comment Performing Organization Information: Site ID: [id number] Name: [facility] Address: [address] [place] [address] [facility] [place] [id number] Director: Stepan Hercules D.O. MPH us Tamie Vázquez MD LAB MICROBIOLOGY - GENERAL ORDERABLES Final Result [facility] from Last 3 Months or Most Recently Relevant to Health Maintenance Insurance [employer] MEDICARE A[employer] MEDICARE [facility] MEDICARE Care Teams Utility Tender Carding Relationship Specialty Start Date End Date Tamie Vázquez MD [address] [place] [address] PCP - General Family Medicine 01/22/19
[2024-11-24 12:17] LABS: Basophils Absolute Auto 0.1 K/mm3 (0.0-0.1); Basophils Percent Auto 0.3 % (0.2-1.2); Eosinophils Absolute Auto 0.1 K/mm3 (0-0.3); Eosinophils Percent Auto 0.8 % (0-4.4); Hemoglobin 14.1 g/dL (12.0-15.0); Immature Granulocyte Absolute 0.16 K/mm3 (0.00-0.031); Immature Granulocyte Percent A 0.9 % (0-0.5); Lymphocytes Absolute Auto 0.96 K/mm3 (0.9-3.2); Lymphocytes Percent Auto 5.4 % (18.3-44.2); Mean Corpuscular HGB Conc 34.4 g/dl (32-36); Monocytes Absolute Auto 1.2 K/mm3 (0.1-0.6); Monocytes Percent Auto 6.6 % (2.6-8.5); Neutrophils Absolute Auto 15.4 K/mm3 (1.3-6.7); Platelet Count Result 217 k/mm3 (150-375); Red Blood Count 4.41 M/mm3 (4.2-5.4); Red Cell Distribution Width 12.8 % (11.5-14.5); White Blood Count 17.9 K/mm3 (4.5-10.0)
[2024-11-24] MEDS: SODIUM CHLORIDE 0.9% IV 1,000 ML 999 ML IV CONT (12:26)
[2024-11-24 12:46] LABS: Alanine Aminotransferase 22 U/L (6-35); Albumin Level 3.8 g/dL (3.5-5.1); Alkaline Phosphatase 58 U/L (38-126); Anion Gap 5 mmol/L (4-12); Aspartate Amino Transferase 32 U/L (14-36); Bilirubin,Total 0.5 mg/dL (0.2-1.3); Blood Urea Nitrogen 14 mg/dL (7-17); Calcium 9.6 mg/dL (8.4-10.2); Carbon Dioxide 29 mmol/L (22-30); Chloride 104 mmol/L (98-107); Estimated CRCL calculation 55 ml/min; Estimated Glomerular Filt Rate > 60; Glucose 114 mg/dL (65-110); Lipase 56 U/L (23-300); Potassium 4.1 mmol/L (3.4-5.0); Sodium 138 mmol/L (137-145); Total Protein 6.6 g/dL (6.3-8.2)
--- OUTSIDE RECORDS SUMMARY | 2024-11-24 12:59 | XMS_ITS | Referral Summary ---
Author Organization [address] Address [address] [place] [phone] Care Team Providers Care Retail Customer Service Representative Name Role Phone Tamie Vázquez MD Primary Care [facility] Encounters Date Type Department Care Team Description 11/16/2024 Telephone [facility] Medicine [address] [place] [phone] Skylar Albrecht MA Chart Review ([employer] med adh) 10/28/2024 Telephone [facility] Care Organization [address] [place] [phone] Amberly Tavarez MA Chart Review (Med adherence) 10/21/2024 10:00 AM CDT Office Visit [facility] Medical [facility] [address] [place] [phone] Tamie Vázquez MD Encounter for Medicare [...] mammogram for breast cancer 10/14/2024 Results Follow-Up [facility] [address] [phone] Tamie Vázquez MD Lipid panel, Comprehensive metabolic panel, Hemoglobin A1c, Additional followed-up results: 2 10/13/2024 Orders Only [facility] [address] [phone] Tamie Vázquez MD 09/16/2024 ACO Medication Access [facility] Care Organization [address] [place] [phone] 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, orthotic and prosthetic technician from Last 3 Months Allergies No known [...] monitor Assessment & Plan (07/25/2022 10:49 AM REPAIRER TYPEWRITER): Chronic, improved Continue to monitor Assessment & Plan (07/15/2022 11:35 AM REPAIRER TYPEWRITER): -Main issue of urinary leakage with coughing, [...] year Assessment & Plan (07/25/2022 10:47 AM REPAIRER TYPEWRITER): Chronic, stable Continue to follow with pulmonary Update me with any changes Assessment & Plan (08/23/2021 11:58 AM REPAIRER TYPEWRITER): Update me with any changes Continue to follow with Pulmonary Assessment & Plan (05/15/2021 11:16 AM REPAIRER TYPEWRITER): Continue to follow with pulmonary Abnormal CT of the chest 09/20/2020 Overview (09/20/2020): will check PET scan further guidance once we have the results call for questions or concerns Assessment & Plan (10/14/2023 12:38 PM CDT): Chronic, stable Managed by Pulmonary Last CT completed in July 2023 Consider follow-up testing in one year Assessment & Plan (07/25/2022 10:36 AM REPAIRER TYPEWRITER): Chronic- stable Continue to follow with pulmonary Update me with any changes Assessment & Plan (05/15/2021 11:09 AM REPAIRER TYPEWRITER): CT reviewed Continue to follow with pulmonary [...] evaluation Assessment & Plan (07/25/2022 10:48 AM REPAIRER TYPEWRITER): Chronic, stable She has follow up with pulmonary to review CT scan and symptoms We discussed an EKG, further evaluation- declined Any emergent symptoms, to the er Call for questions Assessment & Plan (05/15/2021 11:17 AM REPAIRER TYPEWRITER): Work up completed Continue to monitor Assessment & Plan (10/21/2020 7:39 PM CDT): Patient states her shortness of breath is improved. Will continue monitor her symptoms. Assessment & Plan (08/22/2020 10:43 AM REPAIRER TYPEWRITER): Will check PFT's Will start a new inhaler called symbicort-rinse her mouth out after using Continue albuterol as needed Chest xray ordered Further guidance once we have the results Hepatic steatosis 05/10/2020 Assessment & Plan (10/14/2023 12:42 PM CDT): Chronic, stable Continue to work on healthy lifestyle changes Assessment & Plan (07/25/2022 10:44 AM REPAIRER TYPEWRITER): Chronic Encouraged healthy lifestyle changes Assessment & Plan (05/15/2021 11:14 AM REPAIRER TYPEWRITER): lft's now normal Continue to monitor Assessment & Plan (05/10/2020 11:03 AM REPAIRER TYPEWRITER): With elevated liver function We reviewed a lower fat diet, working towards a lower BMI Recheck labs in 6 months Call for questions or concerns Arthritis of left knee 05/10/2020 Assessment & Plan (10/14/2023 12:39 PM CDT): Chronic, stable Continue supportive care Assessment & Plan (07/25/2022 10:37 AM REPAIRER TYPEWRITER): Chronic, stable Continue supportive care Assessment & Plan (05/15/2021 11:11 AM REPAIRER TYPEWRITER): Improved Continue supportive care Assessment & Plan (05/10/2020 11:05 AM REPAIRER TYPEWRITER): Xray reviewed Will refer to one of [...] date Assessment & Plan (07/25/2022 10:33 AM REPAIRER TYPEWRITER): Work on healthy diet and activity Encouraged to look into POA or living will Health Maintenance: Last mammogram: scheduled Last DEXA: 01/05/2020-scheduled Last colonoscopy: 2015, repeat 12/2020-referral placed Last Tdap: insurance Last pneumonia: today Last Shingrix: 2018 Last Flu: recently got it Last COVID: encouraged Assessment & Plan (05/15/2021 11:08 AM REPAIRER TYPEWRITER): Work on healthy diet and activity Encouraged [...] months Assessment & Plan (07/25/2022 10:46 AM REPAIRER TYPEWRITER): Chronic, worse Encouraged a lower carb diet Gentle activity- like walking Can help mood, bones strength, and sugar Assessment & Plan (05/15/2021 11:15 AM REPAIRER TYPEWRITER): Continue to work on a lower carb [...] concerns Assessment & Plan (07/25/2022 10:47 AM REPAIRER TYPEWRITER): Chronic, uncontrolled CVD score 21.6% We discussed medication, she is very reluctant Reviewed healthy changes Recheck in 3 months Assessment & Plan (05/15/2021 11:16 AM REPAIRER TYPEWRITER): Doing well on pravastatin Continue current regimen Assessment & Plan (08/22/2020 12:59 PM REPAIRER TYPEWRITER): Declined medication restart Reviewed ASCVD score Consider recheck in 6 months from her original Continue to work on healthy changes Assessment & Plan (05/10/2020 11:04 AM REPAIRER TYPEWRITER): Improved! Continue current regimen Assessment & Plan (03/21/2020 3:16 PM CDT): CVD score 14.1% Will start pravastatin 10 mg nightly Lab recheck in 6 weeks Call for questions or concerns Assessment & Plan (07/22/2019 8:43 AM REPAIRER TYPEWRITER): CVD score 13.3% We reviewed cardiac risks, and what her 10 year risk is in clear language Continue work on healthy changes Call for questions or concerns Assessment & Plan (04/21/2019 9:17 AM REPAIRER TYPEWRITER): Labs reviewed Will start with lifestyle changes Fish oil 2-4 g EPA/DHA daily Low fat diet Work towards weight loss Increase aerobic exercise Recheck in 3-6 months Atrophic vaginitis 04/21/2019 Assessment & Plan (10/14/2023 12:39 PM CDT): Chronic, stable Managed by Gynecology Continue Estrace as prescribed Assessment & Plan (07/25/2022 10:40 AM REPAIRER TYPEWRITER): Chronic We discussed vaginal estrogen- she declined Will refer to BIAS CUTTING MACHINE OPERATOR VERTICAL to discuss treatment options Assessment & Plan (05/15/2021 11:12 AM REPAIRER TYPEWRITER): We discussed doing a trial of a vaginal estrogen She has been using kenalog Assessment & Plan (04/21/2019 9:28 AM REPAIRER TYPEWRITER): On kenalog for years with improvement Will [...] weeks Assessment & Plan (07/25/2022 10:45 AM REPAIRER TYPEWRITER): Chronic, stable Continue healthy changes for her blood pressure Assessment & Plan (05/15/2021 11:15 AM REPAIRER TYPEWRITER): Stable Continue current regimen Continue healthy changes Assessment & Plan (03/21/2020 3:15 PM CDT): Blood pressure well controlled Continue current regimen Call for questions or concerns Assessment & Plan (07/22/2019 8:41 AM REPAIRER TYPEWRITER): Blood pressure at goal Continue current regimen [...] CPAP Assessment & Plan (07/25/2022 10:47 AM REPAIRER TYPEWRITER): Chronic, stable Continue to follow with Dr Maher Assessment & Plan (05/15/2021 11:16 AM REPAIRER TYPEWRITER): Continue CPAP Continue to follow with Dr [...] levothyroxine Assessment & Plan (07/25/2022 10:37 AM REPAIRER TYPEWRITER): Chronic, stable Continue current dose of levothyroxine Assessment & Plan (08/23/2021 11:57 AM REPAIRER TYPEWRITER): Continue her current dose of levothyroxine 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 Call for questions or concerns Assessment & Plan (05/15/2021 12:06 PM REPAIRER TYPEWRITER): TSH is running too low, but T4 is also low Will place referral to endo Recheck thyroid, prolactin, thyroid us Call for questions or concerns Assessment & Plan (09/20/2020 11:00 AM CDT): Take the lower dose of her thyroid medication Recheck labs in 4 weeks Call for questions or concerns Assessment & Plan (08/22/2020 10:44 AM REPAIRER TYPEWRITER): Lab order printed Assessment & Plan (05/10/2020 11:04 AM REPAIRER TYPEWRITER): Now hyperthyroid Will have her alternate 137 [...] Lexapro Assessment & Plan (07/25/2022 10:46 AM REPAIRER TYPEWRITER): Chronic, improved Continue healthy changes for her mood Update me if they worsen or change Assessment & Plan (05/15/2021 11:15 AM REPAIRER TYPEWRITER): Mood is doing great Continue lexapro Assessment [...] provided. Assessment & Plan (04/22/2024 10:40 AM REPAIRER TYPEWRITER): Chronic, improved BMI Follow-up includes: nutrition counseling. Assessment & Plan (10/14/2023 1:24 PM CDT): Chronic, improved BMI Follow-up includes: nutrition counseling, low carb diet. Assessment & Plan (07/25/2022 10:41 AM REPAIRER TYPEWRITER): BMI Follow-up includes: nutrition counseling. Assessment & Plan (05/14/2022 1:30 PM REPAIRER TYPEWRITER): BMI Follow-up includes: nutrition counseling. Assessment & Plan (08/23/2021 11:58 AM REPAIRER TYPEWRITER): Slightly higher than her last check BMI Follow-up includes: Continue working on healthy changes. Assessment & Plan (05/15/2021 11:13 AM REPAIRER TYPEWRITER): BMI Follow-up includes: nutrition counseling. Assessment & Plan (09/20/2020 10:20 AM CDT): BMI Follow-up includes: nutrition counseling. Assessment & Plan (03/21/2020 3:33 PM CDT): BMI Follow-up includes: nutrition counseling. Assessment & Plan (07/22/2019 8:43 AM REPAIRER TYPEWRITER): BMI Follow-up includes: nutrition counseling. Assessment & Plan (04/21/2019 9:20 AM REPAIRER TYPEWRITER): BMI Follow-up includes: nutrition counseling. BMR calculated at:1437 To lose weight, daily calorie goal to lose a pound a week would be [id number] Start tracking using an michele like [employer], loseit There are many different diet options- [...] worsens Assessment & Plan (07/25/2022 10:44 AM REPAIRER TYPEWRITER): Chronic, improved Continue healthy changes for her mood Update me with any changes Assessment & Plan (08/23/2021 11:56 AM REPAIRER TYPEWRITER): With several losses We reviewed medication, but [...] 05/15/2021 Assessment & Plan (08/22/2020 10:45 AM REPAIRER TYPEWRITER): Xray ordered Rest, ice, and consider a [...] changes Assessment & Plan (07/25/2022 10:43 AM REPAIRER TYPEWRITER): Chronic, recurrent Will recheck in 3 months Assessment & Plan (05/15/2021 11:13 AM REPAIRER TYPEWRITER): Continue to monitor Continue healthy changes Assessment & Plan (05/10/2020 11:03 AM REPAIRER TYPEWRITER): With hepatic steatosis Will have her work on healthy lifestyle changes Assessment & Plan (03/21/2020 3:14 PM CDT): Slight bump Will check RUQ us Recheck labs in 6 months Assessment & Plan (07/22/2019 8:43 AM REPAIRER TYPEWRITER): Recheck printed Assessment & Plan (04/21/2019 9:18 AM REPAIRER TYPEWRITER): Will recheck in 3 months Work on [...] on file Legal Sex Female 3:50 AM REPAIRER TYPEWRITER Gender Identity Female 07/16/2021 12:51 PM REPAIRER TYPEWRITER Sexual Orientation Straight 04/19/2021 7: 04 AM [...] WBC 9.4 3.8 - 10.8 Thousand/u L [facility] RBC, POC 4.64 3.80 - 5.10 Million/uL [facility] Hgb 14.9 11.7 - 15.5 g/dL [facility] Hct 45.0 35.0 - 45.0 % [facility] MCV 97.0 80.0 - 100.0 fL [facility] MCH 32.1 27.0 - 33.0 pg [facility] MCHC 33.1 32.0 - 36.0 g/dL [facility] Comment: For adults, a slight decrease in the calculated MCHC value (in the range of 30 to 32 g/dL) is most likely not clinically significant; however, it should be interpreted with caution in correlation with other red cell parameters and the patient's clinical condition. Rdw 13.3 11.0 - 15.0 % [facility] Platelets 326 140 - 400 Thousand/u L [facility] MPV 9.5 7.5 - 12.5 fL [facility] Neutrophils, abs 6,571 1,500 - 7,800 cells/uL [facility] Lymphocytes, abs 1,983 850 - 3,900 cells/uL [facility] Monocyte abs 639 200 - 950 cells/uL [facility] Eosinophils, abs 141 15 - 500 cells/uL [facility] Basophils, abs 66 0 - 200 cells/uL [facility] Neutrophils 69.9 % [facility] Lymphocyte pct 21.1 % [facility] Monocytes 6.8 % [facility] Eosinophils 1.5 % [facility] Basophils 0.7 % [facility] 10/13/2024 8:32 AM CDT 10/13/2024 8:35 AM CDT Narrative [facility] - 10/14/2024 8:07 AM CDT FASTING:YES FASTING: YES Tamie Vázquez MD LAB BLOOD ORDERABLE S Final Result Performing Organization Address City/[facility] Co de Phone Number [facility] [address] [place] [address] * (ABNORMAL) Albumin Creatinine Ratio, Urine (10/13/2024 [...] ORDERABLE S Final Result Performing Organization Address [facility] Co de Phone Number [facility] [address] [phone] * (ABNORMAL) Hemoglobin A1c (10/13/2024 8:32 AM CDT) Hgb A1C 5.7(H) <5.7 % of total Hgb [facility] Ant Comment: For someone without known diabetes, [...] LAB BLOOD ORDERABLE S Final Result [facility] [address] [place] [address] * Lipid panel (10/13/2024 8:32 AM CDT) [facility] Cholesterol 149 <200 mg/dL [facility] HDL 64 > OR = 50 mg/dL [facility] Triglycerides 138 <150 mg/dL [facility] LDL 63 mg/dL (calc) [facility] Comment: Reference range: <100 Desirable range <100 mg/dL for primary prevention; <70 mg/dL for patients with CHD or diabetic patients with > or = 2 CHD risk factors. LDL-C is now calculated using the Malcolm-Cisco calculation, which is a validated novel method providing better accuracy than the Friedewald equation in the estimation of LDL-C. Malcolm ESCOBAR et al. SASHA. 2013;310(19): 7219-1977 (http://education.Gridcentric.GlobalCrypto/faq/BYP054) Chol/HDL ratio 2.3 <5.0 (calc) [facility] Non-HDL, (LDL+VLDL) 85 <130 mg/dL (calc) [facility] Comment: For patients with diabetes plus 1 major ASCVD risk factor, treating to a non-HDL-C goal of <100 mg/dL (LDL-C of <70 mg/dL) is considered a therapeutic option. 10/13/2024 8:32 AM CDT 10/13/2024 8:35 AM CDT Narrative [facility] - 10/14/2024 8:07 AM CDT FASTING:YES FASTING: YES us Tamie Vázquez MD LAB BLOOD ORDERABLE S Final Result YAK[facility] [address] [place] [address] * Comprehensive metabolic panel (10/13/2024 8:32 AM CDT) Pathologist [facility] Glucose 95 65 - 99 mg/dL [facility] Comment: Fasting reference interval BUN 10 7 - 25 mg/dL [facility] maya Ant Creatinine 0.74 0.60 - 1.00 mg/dL [facility] eGFR 83 > OR = 60 mL/min/1.7 3m2 [facility] BUN/creat ratio SEE NOTE: 6 - 22 (calc) [facility] Comment: Not Reported: BUN and Creatinine are within reference range. Sodium 142 135 - 146 mmol/L [facility] Ant Potassium, pl 3.9 3.5 - 5.3 mmol/L [facility] Chloride 103 98 - 110 mmol/L [facility] Ant CO2 30 20 - 32 mmol/L [facility] Calcium 9.5 8.6 - 10.4 mg/dL [facility] Protein, sr 7.0 6.1 - 8.1 g/dL [facility] Ant Albumin 4.4 3.6 - 5.1 g/dL [facility] GLOBULIN 2.6 1.9 - 3.7 g/dL (calc) [facility] fr[facility]co Ant Alb/glob ratio 1.7 1.0 - 2.5 (calc) [facility] Bilirubin, total 0.5 0.2 - 1.2 mg/dL [facility] Alk phos 58 37 - 153 U/L [facility] Ant AST 17 10 - 35 U/L [facility] fr[facility] ALT (SGPT) 13 6 - 29 U/L [facility] franecsc[facility] Ant 10/13/2024 8:32 AM CDT 10/13/2024 8:35 AM CDT Narrative [facility] - 10/14/2024 8:07 AM CDT FASTING:YES FASTING: YES Tamie Vázquez MD LAB BLOOD ORDERABLE S Final Result [facility] [address] [place] [address] * DIABETES EYE EXAM (12/31/2023) SCRIBED DIABETIC [...] old F with given history of screening. Onsite Health Coach/Model: [employer] A (S/N [id number]) CLINICAL INFORMATION: Current height: 60 inches Maximum [...] Lucero [place] M.D. TW: TW Report ID: [id number] Reading Location: [id number] Procedure Note Lucero Gilbert MD - 11/20/2022 EXAM DESCRIPTION: DEXA AXIAL SKELETON BONE DENSITY 1 OR MORE SITES REASON FOR STUDY: 77 y/o year old F with given history of screening. Onsite Health Coach/Model: [employer] A (S/N [id number]) CLINICAL INFORMATION: Current height: 60 inches Maximum [...] Lucero [place] M.D. TW: TW Report ID: [id number] Reading Location: [place] [address] Tamie Vázquez MD IMG DXA PROCEDURES Final Result * Hepatitis C antibody (03/18/2019 10:11 AM CDT) Hep C Ab NON-REACT GABE NON-REACT GABE [facility] SIGNAL TO CUT-OFF 0.03 <1.00 [facility] [place] Comment: HCV antibody was non-reactive. There is no laboratory evidence of HCV infection. In most cases, no further action is required. However, if recent HCV exposure is suspected, a test for HCV RNA (test code 07707) is suggested. For additional information please refer to http://education.Crunchyroll/faq/XMJ32i2 (This link is being provided for informational/ educational purposes only.) 03/18/2019 10:1 1 AM CDT 03/18/2019 10:13 AM CDT Narrative [facility] - 03/19/2019 1:55 PM CDT FASTING:YES FASTING: YES Resulting Agency Comment Performing Organization Information: Site ID: [id number] Name: [facility] Address: [address] [address] Director: Stepan Hercules D.O., MPH Tamie Vázquez MD LAB MICROBIOLOGY - GENERAL ORDERABLES Final Result [facility] [place] [facility] from Last 3 Months or Most Recently Relevant to Health Maintenance Insurance [employer]NA MEDICARE AETNA MEDICARE AETNA MEDICARE Care Teams Retail Customer Service Representative Relationship Specialty Start Date End Date Tamie Vázquez MD [address] [place] [address] PCP - General Family Medicine 01/22/19
--- OUTSIDE RECORDS SUMMARY | 2024-11-24 12:59 | XMS_ITS | Clinical Summary ---
Author Organization [address] Address [address] [place] [phone] Care Team Providers Care Design Engineer Products Name Role Phone Tamie Vázquez MD Primary [...] monitor Assessment & Plan (07/25/2022 10:49 AM ZIPPER SEWING MACHINE OPERATOR): Chronic, improved Continue to monitor Assessment & Plan (07/15/2022 11:35 AM ZIPPER SEWING MACHINE OPERATOR): -Main issue of urinary leakage with [...] year Assessment & Plan (07/25/2022 10:47 AM ZIPPER SEWING MACHINE OPERATOR): Chronic, stable Continue to follow with pulmonary Update me with any changes Assessment & Plan (08/23/2021 11:58 AM ZIPPER SEWING MACHINE OPERATOR): Update me with any changes Continue to follow with Pulmonary Assessment & Plan (05/15/2021 11:16 AM ZIPPER SEWING MACHINE OPERATOR): Continue to follow with pulmonary Abnormal CT of the chest 09/20/2020 Overview (09/20/2020): will check PET scan further guidance once we have the results call for questions or concerns Assessment & Plan (10/14/2023 12:38 PM CDT): Chronic, stable Managed by Pulmonary Last CT completed in July 2023 Consider follow-up testing in one year Assessment & Plan (07/25/2022 10:36 AM ZIPPER SEWING MACHINE OPERATOR): Chronic- stable Continue to follow with pulmonary Update me with any changes Assessment & Plan (05/15/2021 11:09 AM ZIPPER SEWING MACHINE OPERATOR): CT reviewed Continue to follow with [...] evaluation Assessment & Plan (07/25/2022 10:48 AM ZIPPER SEWING MACHINE OPERATOR): Chronicnarinder She has follow up with pulmonary to review CT scan and symptoms We discussed an EKG, further evaluation- declined Any emergent symptoms, to the er Call for questions Assessment & Plan (05/15/2021 11:17 AM ZIPPER SEWING MACHINE OPERATOR): Work up completed Continue to monitor Assessment & Plan (10/21/2020 7:39 PM CDT): Patient states her shortness of breath is improved. Will continue monitor her symptoms. Assessment & Plan (08/22/2020 10:43 AM ZIPPER SEWING MACHINE OPERATOR): Will check PFT's Will start a new inhaler called symbicort-rinse her mouth out after using Continue albuterol as needed Chest xray ordered Further guidance once we have the results Hepatic steatosis 05/10/2020 Assessment & Plan (10/14/2023 12:42 PM CDT): narinder Horne Continue to work on healthy lifestyle changes Assessment & Plan (07/25/2022 10:44 AM ZIPPER SEWING MACHINE OPERATOR): Chronic Encouraged healthy lifestyle changes Assessment & Plan (05/15/2021 11:14 AM ZIPPER SEWING MACHINE OPERATOR): lft's now normal Continue to monitor Assessment & Plan (05/10/2020 11:03 AM ZIPPER SEWING MACHINE OPERATOR): With elevated liver function We reviewed a lower fat diet, working towards a lower BMI Recheck labs in 6 months Call for questions or concerns Arthritis of left knee 05/10/2020 Assessment & Plan (10/14/2023 12:39 PM CDT): Chronicnarinder Continue supportive care Assessment & Plan (07/25/2022 10:37 AM ZIPPER SEWING MACHINE OPERATOR): Chronic, stable Continue supportive care Assessment & Plan (05/15/2021 11:11 AM ZIPPER SEWING MACHINE OPERATOR): Improved Continue supportive care Assessment & Plan (05/10/2020 11:05 AM ZIPPER SEWING MACHINE OPERATOR): Xray reviewed Will refer to one [...] date Assessment & Plan (07/25/2022 10:33 AM ZIPPER SEWING MACHINE OPERATOR): Work on healthy diet and activity Encouraged to look into POA or living will Health Maintenance: Last mammogram: scheduled Last DEXA: 01/05/2020-scheduled Last colonoscopy: 2015, repeat 12/2020-referral placed Last Tdap: insurance Last pneumonia: today Last Shingrix: 2019 Last Flu: recently got it Last COVID: encouraged Assessment & Plan (05/15/2021 11:08 AM ZIPPER SEWING MACHINE OPERATOR): Work on healthy diet and activity [...] months Assessment & Plan (07/25/2022 10:46 AM ZIPPER SEWING MACHINE OPERATOR): Chronic, worse Encouraged a lower carb diet Gentle activity- like walking Can help mood, bones strength, and sugar Assessment & Plan (05/15/2021 11:15 AM ZIPPER SEWING MACHINE OPERATOR): Continue to work on a lower [...] concerns Assessment & Plan (07/25/2022 10:47 AM ZIPPER SEWING MACHINE OPERATOR): Chronic, uncontrolled CVD score 21.6% We discussed medication, she is very reluctant Reviewed healthy changes Recheck in 3 months Assessment & Plan (05/15/2021 11:16 AM ZIPPER SEWING MACHINE OPERATOR): Doing well on pravastatin Continue current regimen Assessment & Plan (08/22/2020 12:59 PM ZIPPER SEWING MACHINE OPERATOR): Declined medication restart Reviewed ASCVD score Consider recheck in 6 months from her original Continue to work on healthy changes Assessment & Plan (05/10/2020 11:04 AM ZIPPER SEWING MACHINE OPERATOR): Improved! Continue current regimen Assessment & Plan (03/21/2020 3:16 PM CDT): CVD score 14.1% Will start pravastatin 10 mg nightly Lab recheck in 6 weeks Call for questions or concerns Assessment & Plan (07/22/2019 8:43 AM ZIPPER SEWING MACHINE OPERATOR): CVD score 13.3% We reviewed cardiac risks, and what her 10 year risk is in clear language Continue work on healthy changes Call for questions or concerns Assessment & Plan (04/21/2019 9:17 AM ZIPPER SEWING MACHINE OPERATOR): Labs reviewed Will start with lifestyle changes Fish oil 2-4 g EPA/DHA daily Low fat diet Work towards weight loss Increase aerobic exercise Recheck in 3-6 months Atrophic vaginitis 04/21/2019 Assessment & Plan (10/14/2023 12:39 PM CDT): Chronic, stable Managed by Gynecology Continue Estrace as prescribed Assessment & Plan (07/25/2022 10:40 AM ZIPPER SEWING MACHINE OPERATOR): Chronic We discussed vaginal estrogen- she declined Will refer to PICK PACK WORKER to discuss treatment options Assessment & Plan (05/15/2021 11:12 AM ZIPPER SEWING MACHINE OPERATOR): We discussed doing a trial of a vaginal estrogen She has been using kenalog Assessment & Plan (04/21/2019 9:28 AM ZIPPER SEWING MACHINE OPERATOR): On kenalog for years with improvement [...] weeks Assessment & Plan (07/25/2022 10:45 AM ZIPPER SEWING MACHINE OPERATOR): Chronic, stable Continue healthy changes for her blood pressure Assessment & Plan (05/15/2021 11:15 AM ZIPPER SEWING MACHINE OPERATOR): Stable Continue current regimen Continue healthy changes Assessment & Plan (03/21/2020 3:15 PM CDT): Blood pressure well controlled Continue current regimen Call for questions or concerns Assessment & Plan (07/22/2019 8:41 AM ZIPPER SEWING MACHINE OPERATOR): Blood pressure at goal Continue current [...] CPAP Assessment & Plan (07/25/2022 10:47 AM ZIPPER SEWING MACHINE OPERATOR): Chronic, stable Continue to follow with Dr Maher Assessment & Plan (05/15/2021 11:16 AM ZIPPER SEWING MACHINE OPERATOR): Continue CPAP Continue to follow with [...] levothyroxine Assessment & Plan (07/25/2022 10:37 AM ZIPPER SEWING MACHINE OPERATOR): Chronic, stable Continue current dose of levothyroxine Assessment & Plan (08/23/2021 11:57 AM ZIPPER SEWING MACHINE OPERATOR): Continue her current dose of levothyroxine Continue to follow with her apartment groundskeeper Call for questions or concerns Assessment & Plan (05/15/2021 12:06 PM ZIPPER SEWING MACHINE OPERATOR): TSH is running too low, but T4 is also low Will place referral to endo Recheck thyroid, prolactin, thyroid us Call for questions or concerns Assessment & Plan (09/20/2020 11:00 AM CDT): Take the lower dose of her thyroid medication Recheck labs in 4 weeks Call for questions or concerns Assessment & Plan (08/22/2020 10:44 AM ZIPPER SEWING MACHINE OPERATOR): Lab order printed Assessment & Plan (05/10/2020 11:04 AM ZIPPER SEWING MACHINE OPERATOR): Now hyperthyroid Will have her alternate [...] Lexapro Assessment & Plan (07/25/2022 10:46 AM ZIPPER SEWING MACHINE OPERATOR): Chronic, improved Continue healthy changes for her mood Update me if they worsen or change Assessment & Plan (05/15/2021 11:15 AM ZIPPER SEWING MACHINE OPERATOR): Mood is doing great Continue lexapro [...] provided. Assessment & Plan (04/22/2024 10:40 AM ZIPPER SEWING MACHINE OPERATOR): Chronic, improved BMI Follow-up includes: nutrition counseling. Assessment & Plan (10/14/2023 1:24 PM CDT): Chronic, improved BMI Follow-up includes: nutrition counseling, low carb diet. Assessment & Plan (07/25/2022 10:41 AM ZIPPER SEWING MACHINE OPERATOR): BMI Follow-up includes: nutrition counseling. Assessment & Plan (05/14/2022 1:30 PM ZIPPER SEWING MACHINE OPERATOR): BMI Follow-up includes: nutrition counseling. Assessment & Plan (08/23/2021 11:58 AM ZIPPER SEWING MACHINE OPERATOR): Slightly higher than her last check BMI Follow-up includes: Continue working on healthy changes. Assessment & Plan (05/15/2021 11:13 AM ZIPPER SEWING MACHINE OPERATOR): BMI Follow-up includes: nutrition counseling. Assessment & Plan (09/20/2020 10:20 AM CDT): BMI Follow-up includes: nutrition counseling. Assessment & Plan (03/21/2020 3:33 PM CDT): BMI Follow-up includes: nutrition counseling. Assessment & Plan (07/22/2019 8:43 AM ZIPPER SEWING MACHINE OPERATOR): BMI Follow-up includes: nutrition counseling. Assessment & Plan (04/21/2019 9:20 AM ZIPPER SEWING MACHINE OPERATOR): BMI Follow-up includes: nutrition counseling. BMR calculated at:1437 To lose weight, daily calorie goal to lose a pound a week would be [phone] Start tracking using an michele like [facility], loseit There are many different diet options- [...] worsens Assessment & Plan (07/25/2022 10:44 AM ZIPPER SEWING MACHINE OPERATOR): Chronic, improved Continue healthy changes for her mood Update me with any changes Assessment & Plan (08/23/2021 11:56 AM ZIPPER SEWING MACHINE OPERATOR): With several losses We reviewed medication, [...] 05/15/2021 Assessment & Plan (08/22/2020 10:45 AM ZIPPER SEWING MACHINE OPERATOR): Xray ordered Rest, ice, and consider [...] changes Assessment & Plan (07/25/2022 10:43 AM ZIPPER SEWING MACHINE OPERATOR): Chronic, recurrent Will recheck in 3 months Assessment & Plan (05/15/2021 11:13 AM ZIPPER SEWING MACHINE OPERATOR): Continue to monitor Continue healthy changes Assessment & Plan (05/10/2020 11:03 AM ZIPPER SEWING MACHINE OPERATOR): With hepatic steatosis Will have her work on healthy lifestyle changes Assessment & Plan (03/21/2020 3:14 PM CDT): Slight bump Will check RUQ us Recheck labs in 6 months Assessment & Plan (07/22/2019 8:43 AM ZIPPER SEWING MACHINE OPERATOR): Recheck printed Assessment & Plan (04/21/2019 9:18 AM ZIPPER SEWING MACHINE OPERATOR): Will recheck in 3 months Work on healthy changes Encounters Date Type Department Care Team Description 11/16/2024 Telephone [facility] [address] [place] [phone] Skylar Albrecht MA Chart Review ([employer] med adh) 10/28/2024 Telephone [facility] Organization [address] [place] [id number] Amberly Tavarez MA Chart Review (Med adherence) 10/21/2024 10:00 AM CDT Office Visit [address] [phone] Tamie Vázquez MD Encounter for Medicare annual [...] mammogram for breast cancer 10/14/2024 Results Follow-Up [address] [phone] Tamie Vázquez MD Lipid panel, Comprehensive metabolic panel, Hemoglobin A1c, Additional followed-up results: 2 10/13/2024 Orders Only [address] [phone] Tamie Vázquez MD 09/16/2024 [facility] Medication Access [place] [phone] 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, portable feed mill operator from Last 3 Months Immunizations Immunization [...] on file Legal Sex Female 3:50 AM ZIPPER SEWING MACHINE OPERATOR Gender Identity Female 07/16/2021 12:51 PM ZIPPER SEWING MACHINE OPERATOR Sexual Orientation Straight 04/19/2021 7: 04 [...] WBC 9.4 3.8 - 10.8 Thousand/u L [facility] RBC, POC 4.64 3.80 - 5.10 Million/uL [facility] Hgb 14.9 11.7 - 15.5 g/dL [facility] Hct 45.0 35.0 - 45.0 % [facility] MCV 97.0 80.0 - 100.0 fL [facility] MCH 32.1 27.0 - 33.0 pg [employer] [facility] MCHC 33.1 32.0 - 36.0 g/dL [facility] Comment: For adults, a slight decrease in the calculated MCHC value (in the range of 30 to 32 g/dL) is most likely not clinically significant; however, it should be interpreted with caution in correlation with other red cell parameters and the patient's clinical condition. Rdw 13.3 11.0 - 15.0 % [facility] Platelets 326 140 - 400 Thousand/u L [facility] MPV 9.5 7.5 - 12.5 fL [facility] Neutrophils, abs 6,571 1,500 - 7,800 cells/uL [facility] Lymphocytes, abs 1,983 850 - 3,900 cells/uL [facility] Monocyte abs 639 200 - 950 cells/uL [facility] Eosinophils, abs 141 15 - 500 cells/uL [facility] Basophils, abs 66 0 - 200 cells/uL [facility] Neutrophils 69.9 % [facility] Lymphocyte pct 21.1 % [facility] Monocytes 6.8 % [facility] Eosinophils 1.5 % [facility] Basophils 0.7 % [facility] 10/13/2024 8:32 AM CDT 10/13/2024 8:35 AM CDT Narrative [facility] - 10/14/2024 8:07 AM CDT FASTING:YES FASTING: YES us Tamie Vázquez MD LAB BLOOD ORDERABLE S Final Result [facility] [address] [place] [address] * (ABNORMAL) Albumin Creatinine Ratio, Urine (10/13/2024 [...] ORDERABLE S Final Result Performing Organization Address City/[facility] Co de Phone Number [facility] [address] [place] [address] * (ABNORMAL) Hemoglobin A1c (10/13/2024 8:32 AM CDT) Hgb A1C 5.7(H) <5.7 % of total Hgb [facility] Comment: For someone without known diabetes, a [...] MD LAB BLOOD ORDERABLE S Final Result [employer] [facility] [address] [place] [phone] * Lipid panel (10/13/2024 8:32 AM CDT) Cholesterol 149 <200 mg/dL [facility] HDL 64 > OR = 50 mg/dL [facility] Triglycerides 138 <150 mg/dL [facility] [...] Friedewald equation in the estimation of LDL-C. Malclom SS et al. SASHA. 2013;310(19): 2708-0103 (http://education.[employer]/faq/ZWX708) Chol/HDL ratio 2.3 <5.0 (calc) [facility] Non-HDL, (LDL+VLDL) 85 <130 mg/dL (calc) [facility] Comment: For patients with diabetes plus 1 major ASCVD risk factor, treating to a non-HDL-C goal of <100 mg/dL (LDL-C of <70 mg/dL) is considered a therapeutic option. 10/13/2024 8:32 AM CDT 10/13/2024 8:35 AM CDT Narrative [facility] - 10/14/2024 8:07 AM CDT FASTING:YES FASTING: YES us Tamie Vázquez MD LAB BLOOD ORDERABLE S Final Result [facility] [address] [place] [address] * Comprehensive metabolic panel (10/13/2024 8:32 AM CDT) Pathologist [facility] Glucose 95 65 - 99 mg/dL [facility] Comment: Fasting reference interval BUN 10 7 - 25 mg/dL [facility] Creatinine 0.74 0.60 - 1.00 mg/dL [facility] eGFR 83 > OR = 60 mL/min/1.7 3m2 [facility] BUN/creat ratio SEE NOTE: 6 - 22 (calc) [facility] Comment: Not Reported: BUN and Creatinine are within reference range. Sodium 142 135 - 146 mmol/L [facility] Potassium, pl 3.9 3.5 - 5.3 mmol/L [facility] Chloride 103 98 - 110 mmol/L [facility] CO2 30 20 - 32 mmol/L [facility] Calcium 9.5 8.6 - 10.4 mg/dL [facility] Protein, sr 7.0 6.1 - 8.1 g/dL [facility] Albumin 4.4 3.6 - 5.1 g/dL [facility] GLOBULIN 2.6 1.9 - 3.7 g/dL (calc) [facility] Alb/glob ratio 1.7 1.0 - 2.5 (calc) [facility] Bilirubin, total 0.5 0.2 - 1.2 mg/dL [facility] Alk phos 58 37 - 153 U/L [facility] AST 17 10 - 35 U/L [facility] ALT (SGPT) 13 6 - 29 U/L [facility] 10/13/2024 8:32 AM CDT 10/13/2024 8:35 AM CDT Narrative [facility] - 10/14/2024 8:07 AM CDT FASTING:YES FASTING: YES Tamie Vázquez MD LAB BLOOD ORDERABLE S Final Result [facility] [address] [place] [address] * DIABETES EYE EXAM (12/31/2023) SCRIBED DIABETIC [...] old F with given history of screening. Glass Block Bender/Model: Prized A (S/N [id number]) CLINICAL INFORMATION: Current height: 60 inches Maximum [...] Lucero Gilbert M.D. TW: TW Report ID: [id number] Reading Location: [id number] Procedure Note Lucero Gilbert MD - 06/07/2023 EXAM DESCRIPTION: DEXA AXIAL SKELETON BONE DENSITY 1 OR MORE SITES REASON FOR STUDY: 77 y/o year old F with given history of screening. Glass Block Bender/Model: [employer] Horizon A (S/N [id number]) CLINICAL INFORMATION: Current height: 60 inches Maximum [...] Lucero Gilbert M.D. TW: VITO Report ID: [id number] Reading Location: [id number] us Tamie Vázquez MD IMG DXA PROCEDURES [...] a test for HCV RNA (test code 02482) is suggested. For additional information please refer to http://education.[employer]/faq/EVD18y9 (This link is being provided for informational/ educational purposes only.) 03/18/2019 10:1 1 AM CDT 03/18/2019 10:13 AM CDT Narrative [facility] - 03/19/2019 1:55 PM CDT FASTING:YES FASTING: YES Resulting Agency Comment Performing Organization Information: Site ID: [id number] Name: [facility] Address: [address] [place] [address] [facility] [place] [address] Director: Stepan Hercules D.O. MPH us Tamie Vázquez MD LAB MICROBIOLOGY - GENERAL ORDERABLES Final Result [facility] from Last 3 Months or Most Recently Relevant to Health Maintenance Insurance [employer] MEDICARE AETNA MEDICARE [facility] MEDICARE Care Teams Design Engineer Products Relationship Specialty Start Date End Date Tamie Vázquez MD [address] [place] [address] PCP - General Family Medicine 01/22/19
[2024-11-24 14:11] LABS: Add Urine Microscopic? YES; Appearance Urine Clear (Clear); Bacteria Urine None Seen /hpf; Bilirubin Urine Negative (Negative); Blood Urine Negative (Negative); Color Urine Yellow (Yellow); Glucose Urine UA Negative (Negative); Ketones Urine Negative (Negative); Leukocyte Esterase Ur 1+ LEU/UL (Negative); Need Manual Microscopic Reviewed; Nitrate Urine Negative (Negative); Non Pathogenic Casts 0-2; Protein Urine Negative (Negative); Specific Grav Ur 1.023 (1.001-1.035); Squamous Epithelial Cell Urine None Seen /hpf (Few); WBC Urine 0-5 /hpf (0-3)
[2024-11-24 14:49] VITALS: BP 146/71; PULSE 70; RESP 18; O2SAT 97
[2024-11-24] MEDS: polyethylene glycoL 3350 17 GM POWD.PACK PO (15:15)
--- NOTE | 2024-11-24 15:26 | PC.NURSE ---
soap suds enema administered at this time, patient able to tolerate about 500ml before needing to move to the commode. patient currently attempting to have a bowel movement at this time
--- NOTE | 2024-11-24 15:57 | PC.NURSE ---
patient currently having a bowel movement, states she's not done
--- NOTE | 2024-11-24 17:17 | PC.NURSE ---
Patient was given some more of the soap suds enema, and is currently attempting to have a bowel movement at this time.
== END 2024-11-24 18:04 | disposition home or self-care (01) ==
PROVIDERS: Emergency Provider Physician Assistant; PCP Family Medicine
DX: K59.00 Constipation, unspecified (principal); D72.829 Elevated white blood cell count, unspecified; N20.0 Calculus of kidney
CPT/HCPCS: 36415; 74177; 80053; 81001; 83690; 85025; 87086; 96360; 99284; J7030; Q9967